=== PATIENT | female | born 1970 | race Caucasian/White ===

== ENCOUNTER 2017-01-25 16:45 | Emergency (ER) | payer SELFPAY ==
[~2017-01-25] VITALS: Ht 167.6 cm; Wt 55.8 kg
[2017-01-25 17:03] VITALS: BP 92/51
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
[2017-01-25] MEDS ORDERED: DIAZEPAM 10 MG/2 ML DISP.SYRIN. IV ONE (19:15)
== END 2017-01-25 20:23 | disposition home or self-care (01) ==
LOC: ER 16:45
DX: M54.16 Radiculopathy, lumbar region (principal); K21.9 Gastro-esophageal reflux disease without esophagitis; Z90.49 Acquired absence of other specified parts of digestive tract; Z90.710 Acquired absence of both cervix and uterus
CPT/HCPCS: 72148; 96374; 99284; J3360

== ENCOUNTER → 2017-02-20 | Outpatient (CLI) | payer OTHER ==
[2017-01-25 17:03] VITALS: BP 92/51
--- NOTE | 2017-02-21 09:43 | KCIC ---
PROCEDURE MR of the musculoskeletal pelvis HISTORY Lumbar plexopathy. TECHNIQUE Routine multiplanar sequences are obtained. COMPARISON None FINDINGS Small linear hypointense band identified at the anterosuperior subchondral left femoral head. Although subtle, this is suspicious for a small area of osteonecrosis. Small subchondral fracture such as from stress etiology could also be considered. Note, however, there is no active marrow edema here. There is a separate lesion at the anteroinferior left femoral head also subchondral measures 10 millimeters diameter. This has a less specific location and morphology and does not demonstrate any aggressive features or surrounding edema. This may just represent a benign process such as a cyst, although if there are corresponding risk factors, this could also be the result of chronic osteonecrosis. Right femoral head is intact. No acute bone marrow edema identified in the area of coverage. No significant hip joint effusion. Pubic symphysis intact. Sacroiliac joints intact. No abnormal soft tissue mass or fluid collection is identified. Muscle tissue is intact. Major tendon attachments are intact. IMPRESSION 1. Small linear band of subchondral signal at the anterosuperior left femoral head, concerning for a small focus of osteonecrosis. This could also represent a small subchondral fracture such as from repetitive stress micro trauma. No acute bone marrow edema to suggest an active process. 2. Small subchondral lesion at the anteroinferior left femoral head is less specific. This location would be less typical for osteonecrosis but that should still be considered if the patient is at clinical risk. Alternately, this may just represent a small benign lesion such as a cyst. 3. No apparent acute findings. Electronically signed by: Alfredo Pittman MD (February 21, 2017 09:36:52)
== END | disposition home or self-care (01) ==
LOC: KCIC MRI 15:56
PROVIDERS: ATTEND Neurological Surgery
DX: G54.1 Lumbosacral plexus disorders (principal)
CPT/HCPCS: 72195

== ENCOUNTER 2017-11-20 16:44 | Emergency (ER) | payer SELFPAY ==
[2017-11-20 17:37] LABS: ADD MAN DIFF? NO
[2017-11-20 17:39] LABS: BASO % 0 % (0-3); EOS # 0.1 x10^3/uL (0.0-0.7); EOS % 1 % (0-3); HEMATOCRIT 42.3 % (36.0-47.0); HEMOGLOBIN 14.4 g/dL (12.0-15.5); LYMPH # 3.2 x10^3/uL (1.0-4.8); LYMPH % 32 % (24-48); MEAN CORPUSCULAR HEMOGLOBIN 32 pg (25-35); MEAN CORPUSCULAR HGB CONC 34 g/dL (31-37); MEAN CORPUSCULAR VOLUME 95 fL (79-100); MONO # 0.5 x10^3/uL (0.0-1.1); MONO % 5 % (0-9); NEUT # 6.2 x10^3uL (1.8-7.7); NEUT % 62 % (31-73); PLATELET COUNT 329 x10^3/uL (140-400); RED BLOOD COUNT 4.45 x10^6/uL (3.50-5.40); RED CELL DISTRIBUTION WIDTH 12.5 % (11.5-14.5)
[2017-11-20] MEDS: diphenhydrAMINE 50 MG/ML VIAL IVP ×2 (17:49)
[2017-11-20] MEDS: METOCLOPRAMIDE HCL 10 MG/2 ML VIAL. IV ×2 (17:49)
[2017-11-20] MEDS: PROCHLORPERAZINE 10 MG/2 ML VIAL. IV ×2 (17:49)
[2017-11-20] MEDS: IV NORMAL SALINE 1000ML BAG 1,000 ML IV ×2 (17:50)
[2017-11-20 17:52] LABS: ANION GAP 12 (6-14); BLOOD UREA NITROGEN 7 mg/dL (7-20); BUN/CREATININE RATIO 12 (6-20); CALCIUM 9.9 mg/dL (8.5-10.1); CARBON DIOXIDE 27 mmol/L (21-32); CHLORIDE 103 mmol/L (98-107); CREATININE 0.6 mg/dL (0.6-1.0); GFR 106.7; GLUCOSE 124 mg/dL (70-99); POTASSIUM 3.7 mmol/L (3.5-5.1); SODIUM 142 mmol/L (136-145)
[2017-11-20 17:58] LABS: ALBUMIN 4.2 g/dL (3.4-5.0); ALBUMIN/GLOBULIN RATIO 1.1 (1.0-1.7); ALK PHOS 83 U/L (46-116); ALT (SGPT) 43 U/L (14-59); AST (SGOT) 25 U/L (15-37); LIPASE 138 U/L (73-393); TOTAL BILIRUBIN 0.5 mg/dL (0.2-1.0); TOTAL PROTEIN 7.9 g/dL (6.4-8.2)
== END 2017-11-20 19:36 | disposition home or self-care (01) ==
LOC: ER 16:44
DX: R11.2 Nausea with vomiting, unspecified (principal); K21.9 Gastro-esophageal reflux disease without esophagitis; F12.10 Cannabis abuse, uncomplicated; Z90.49 Acquired absence of other specified parts of digestive tract; Z90.710 Acquired absence of both cervix and uterus; Z98.51 Tubal ligation status
CPT/HCPCS: 36415; 80053; 83690; 85025; 96361; 96374; 96375; 99285-25; J0780; J1200; J2765; J7030

== ENCOUNTER → 2018-11-20 | Outpatient (CLI) | payer OTHER ==
[2017-11-20 19:30] VITALS: BP 138/68
[~2018-11-20] MED LIST: DIAZ5TAB PO; DOCU-109 PO; HYDR-2763 PO; HYDR-2769 PO; MORP15TA3 PO; NITR100C6 PO; OMEP20TA8 PO; ONDA4TAB12 PO; PANT20TA2 PO; PRED1TAB3 PO; PREG50CA PO; PROC10TA57 PO; PROC25SU21 RC; SUCR1TAB35 PO; TIZA4TAB PO
--- NOTE | 2018-11-20 11:18 | RAD ---
MRI Lumbar Spine without contrast History: L5/S1 RADICULOPATHY, left leg numbness Technique: Multiplanar, multi sequential noncontrast MR imaging was performed of the lumbar spine. Comparison: January 25, 2017 Findings: Lumbar vertebral body stature and AP alignment are maintained. There is hemangioma of S1, also small focus on the right at L4. There is again moderate to severe degenerative disc disease L5-S1, minimally at L2-3. Conus terminates at the L1-2 level. There is no significant marrow edema. L3-L4: There is mild buckling of the ligamentum flavum and facet degenerative change. Neural foramina and spinal canal are adequate. L4-L5: There is mild buckling of the ligamentum flavum and right facet hypertrophic change. Neural foramina are adequate. There is very mild narrowing of the far right lateral recess as seen previously. L5-S1: There is now protrusion/contained extrusion eccentric to the left lateral recess about 0.7 cm AP by 0.7 cm CC by about 0.7 cm transverse. There is also now a small extrusion extending below the intervertebral disc space in the left paracentral region with inferior extent to the mid aspect of S1 as seen on T1-weighted images about 0.6 cm transverse by 0.4 cm AP by probably at least 0.6 cm cc although poorly seen on the sagittal images. At the intervertebral disc space level, there is increased moderate narrowing of the far left lateral recess with contact and mild posterior displacement of the descending left S1 nerve root. There is very mild inferior neural foramina compromise bilaterally by disc osteophyte complex as seen previously. There is mild facet degenerative change IMPRESSION: 1. There is now protrusion/contained extrusion eccentric to the left lateral recess at L5-S1 with increased moderate left lateral recess stenosis and posterior displacement of the descending left S1 nerve root, also small extrusion extending below the intervertebral disc space in left paracentral region. 2. There is again moderate to severe degenerative disc disease L5-S1. 3. There is similar mild narrowing of the inferior neural foramina bilaterally at L5-S1 by disc osteophyte complex. Electronically signed by: Jassi Pinedo MD (11/20/2018 11:13 AM) [facility]
== END | disposition home or self-care (01) ==
LOC: MRI 15:22
PROVIDERS: ATTEND Physical Medicine & Rehabilitation
DX: M51.37 Other intervertebral disc degeneration, lumbosacral region (principal); M48.07 Spinal stenosis, lumbosacral region; M51.27 Other intervertebral disc displacement, lumbosacral region
CPT/HCPCS: 72148

== ENCOUNTER → 2018-11-28 | Outpatient (CLI) | payer OTHER ==
[2017-11-20 19:30] VITALS: BP 138/68
[~2018-11-28] MED LIST changes: -DOCU-109 PO; -MORP15TA3 PO; -NITR100C6 PO; -PREG50CA PO
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
== END | disposition home or self-care (01) ==
LOC: PNCL 08:10
PROVIDERS: ATTEND Anesthesiology
DX: M54.5 Low back pain (principal); M79.605 Pain in left leg; F17.210 Nicotine dependence, cigarettes, uncomplicated; M21.372 Foot drop, left foot; Z90.49 Acquired absence of other specified parts of digestive tract; Z87.440 Personal history of urinary (tract) infections; Z87.19 Personal history of other diseases of the digestive system; Z83.3 Family history of diabetes mellitus; Z82.49 Family history of ischemic heart disease and other diseases of the circulatory system
CPT/HCPCS: G0463

== ENCOUNTER → 2018-12-12 | Outpatient (CLI) | payer OTHER ==
[2017-11-20 19:30] VITALS: BP 138/68
[~2018-12-12] MED LIST changes: +DOCU-109 PO; +IOHEXOL 180 MG/ML 10 ML VIAL. ONE; +MORP15TA3 PO; +NITR100C6 PO; +PREG50CA PO; +methylPREDNISolone ACETATE 40 MG/ML VIAL. ONE; +methylPREDNISolone ACETATE 80 MG/ML VIAL. ONE
--- NOTE | 2018-12-13 00:34 | PAIN ---
DATE OF SERVICE: 12/12/2018 DIAGNOSES: Lumbar radiculopathy with lumbar degenerative disk disease, lumbar herniated disk. HISTORY OF PRESENT ILLNESS: The patient for 48-year-old female who returns for followup status post initial evaluation and preauthorization for lumbar epidural steroid injection. The patient reports still significant pain in the low back, left lower extremity, radiating to the posterior gluteus, posterior thigh, posterior calf, into the foot with numbness, tingling, burning, stabbing, described it as aching, sharp, dull, tight, also becoming constant, worse with walking, standing, using a cane in her right hand to ambulate. The patient reports pain is a 10 on a scale of 10 at its worst, 7 on average, 5 at its least and is a 7 today. The patient reports no new motor or sensory deficits. It awakens her from sleep occasionally, not every night, with still significant burning and tingling. The patient reports the Lyrica, we had given her some samples 50 mg twice a day, did decrease pain by about 20-25%. The patient reports no new motor or sensory deficits, no new bowel or bladder incontinence or other complaints. PHYSICAL EXAMINATION: VITAL SIGNS: The patient's blood pressure is 125/80, pulse 101, respirations 16, temperature 97.9 degrees Fahrenheit, weight is 128 pounds. GENERAL: The patient is awake, alert, oriented, appropriate, very pleasant demeanor. HEENT: Shows normocephalic, atraumatic. Extraocular movements are intact and symmetrical. Oral cavity: Mucous membranes are moist and pink. Dentition is intact. NECK: Shows anterior throat supple without palpable lymphadenopathy noted. Swallow reflex symmetrical. CHEST: Shows normal on inspection. Breath sounds are clear to auscultation bilaterally. HEART: Shows S1, S2 clear. No murmurs auscultated. ABDOMEN: Soft, nontender, nondistended. No palpable organomegaly is noted. No rebound or guarding demonstrated. BACK: Shows spine grossly in the midline, normal appearing thoracic kyphosis, some minor flattening of lumbar lordotic curvature. Lumbar paraspinous muscle shows symmetrical on inspection. On palpation shows some moderate tenderness diffusely in the low lumbar distribution, but only diffusely bilaterally without radiation. The patient shows good rotational motion of lumbar spine, both laterally as well as extension and flexion without difficulty. EXTREMITIES: Lower extremities show deep tendon reflexes 1+ in the patellar and tendo calcaneus tendons. Motor exam is approximately 1 on a scale of 5 left ankle with positive footdrop on the left. Right side is 5/5 with dorsiflexion, extension, quadriceps and hamstring flexion. Peripheral pulses are 1+ posterior tibia. No peripheral edema is noted bilaterally. Options were discussed with the patient. The patient's old chart was reviewed as was her current medication regimen updated. Current review of systems is updated today as well. We will proceed with lumbar epidural steroid injection today with fluoroscopic guidance. Risks were again discussed including, but not limited to bleeding, infection, possibility of epidural hematoma and subsequent neurological compromise, dural puncture, headaches, spinal cord and/or nerve damage, side effects of steroid medication and poor results regarding pain control. The patient understands and wished to proceed. The patient will return to the clinic in approximately 2 weeks for followup, was counseled on return appointment, activity level and side effects to be aware of. DIAGNOSIS: Lumbar radiculopathy with lumbar degenerative disk disease, lumbar herniated disk. PROCEDURE: Lumbar epidural steroid injection, translaminar approach at the L5-S1 level using C-arm fluoroscopic guidance under sterile prep and drape using local anesthetic. MEDICATION INJECTED: A total of 120 mg Depo-Medrol plus 10 mL of preservative-free normal saline, 2 mL of Isovue for contrast. CONDITION AT DISCHARGE: Stable. The patient tolerated the procedure well, had no complications. ORTEGA CROOKS MD DR: ARIEL/leatha JOB#: [id number] / [id number]
== END | disposition home or self-care (01) ==
LOC: PNCL 09:00
PROVIDERS: ATTEND Anesthesiology
DX: M51.16 Intervertebral disc disorders with radiculopathy, lumbar region (principal)
CPT/HCPCS: 62323; J1030; J1040; Q9965

== ENCOUNTER → 2018-12-29 | Outpatient (CLI) | payer OTHER ==
[2017-11-20 19:30] VITALS: BP 138/68
[~2018-12-29] MED LIST changes: -IOHEXOL 180 MG/ML 10 ML VIAL. ONE; -methylPREDNISolone ACETATE 40 MG/ML VIAL. ONE; -methylPREDNISolone ACETATE 80 MG/ML VIAL. ONE
--- NOTE | 2018-12-29 14:51 | PAIN ---
DATE OF SERVICE: 12/29/2018 PROGRESS NOTE FOR PAIN CLINIC DIAGNOSIS: Lumbar radiculopathy with lumbar degenerative disk disease and lumbar herniated disk. HISTORY OF PRESENT ILLNESS: The patient is a 48-year-old female who returns for followup status post lumbar epidural steroid injection x 1. The patient reports about 55% improvement overall in the low back and left lower extremity. The patient reports her foot drop has actually gotten slightly better and she is walking better. She is not using a cane today. She has decreased her medication for pain. She is increasing her activity with much greater distance walking, ability to do activity at home and household activities, walking much easier, especially sleeping better at night, does awaken her from time to time with some spasms, but not like it was. The patient reports significantly improved since her last injection and is still doing well and now it has been about 3 weeks since her last visit. The patient reports the pain is a 9 on a scale of 10 at its worst, 5 on average, 3 at its least and is a 3 today. The patient reports it is tingling, burning, aching, tight, shooting into the left lower extremity, mostly posterior gluteus, posterolateral thigh, posterior calf into the ankle and foot, still some numbness and tingling in the area of the lower leg, but the back and upper leg is doing much better, closer to 75% improvement in this region. The patient reports no new motor or sensory deficits, no new bowel or bladder incontinence or other complaints, is quite pleased with her progress thus far. PHYSICAL EXAMINATION: VITAL SIGNS: The patient's blood pressure is 119/84, pulse 84, respirations 16, temperature 98.0 degrees Fahrenheit. Weight is 130.8 pounds. GENERAL: The patient is awake, alert, oriented, appropriate, very pleasant demeanor. HEENT: Head shows normocephalic, atraumatic. Extraocular movements are intact and symmetrical. Oral cavity: Mucous membranes are moist and pink. Dentition is intact. NECK: Shows anterior throat supple without palpable lymphadenopathy noted. Swallow reflex is symmetrical. CHEST: Shows normal on inspection. Breath sounds are clear to auscultation bilaterally. HEART: Shows S1, S2 clear. No murmurs auscultated. ABDOMEN: Soft, nontender, nondistended. No palpable organomegaly is noted. No rebound or guarding demonstrated. BACK: Shows spine grossly in the midline. Normal appearing thoracic kyphosis and lumbar lordotic curvature. Lumbar paraspinous muscle shows symmetrical on inspection, on palpation shows some moderate tenderness diffusely, but only with deeper palpation in the low lumbar distribution of the paraspinous muscles. The patient has good rotational motion of lumbar spine, both laterally as well as extension and flexion without significant difficulty. The patient's back shows good rotation without significant pain reported bilaterally, right and left, as well as extension and flexion. EXTREMITIES: The patient's lower extremities show deep tendon reflexes at 1+ in the patellar and tendo-calcaneus tendons. Motor exam is approximately 1-2 on a scale with left dorsiflexion and extension and 5/5 on the right with positive foot drop on the left side, but again is improved from previous exam to a 2/5 instead of 1 overall. The patient's posterior tibial pulses are 1+ posterior tibia. No peripheral edema is noted bilaterally. The patient's straight leg raise is still mildly positive on the left side at about 40-45 degrees, decreased with knee flexion. Right side remains negative. The patient is able to stand, stand on her toes, but has difficulty putting all her weight on her left side, again walking with a slight shuffling gait, does appear to favor the left lower extremity, however, not using her assistive cane to ambulate with her today as she reports she is feeling much better, does not need it all the time. Options were discussed with the patient. The patient's old chart was reviewed as her current medication regimen updated. Current review of systems updated today as well. We will preauthorize the patient for a second lumbar epidural steroid injection. She did very well after the first injection with about 55% overall, 75% in the back and 55% in the left lower extremity, again with improving foot drop as well as decrease need for pain medications and not using her cane any longer to ambulate. We will preauthorize her to L5-S1 translaminar injection for L5-S1 dermatomal distribution of radiculopathy on the left side. The patient in the meantime will continue with stretching and strengthening exercises as tolerated and return in approximately 1 week. We will plan on second lumbar epidural steroid injection at that time. ORTEGA CROOKS MD DR: ARIEL/leatha JOB#: [id number] / [id number]
== END | disposition home or self-care (01) ==
LOC: PNCL 08:12
PROVIDERS: ATTEND Anesthesiology
DX: M51.16 Intervertebral disc disorders with radiculopathy, lumbar region (principal); M51.26 Other intervertebral disc displacement, lumbar region
CPT/HCPCS: G0463

== ENCOUNTER → 2019-01-09 | Outpatient (CLI) | payer OTHER ==
[2017-11-20 19:30] VITALS: BP 138/68
[~2019-01-09] MED LIST changes: +IOHEXOL 180 MG/ML 10 ML VIAL. ONE; +methylPREDNISolone ACETATE 40 MG/ML VIAL. ONE; +methylPREDNISolone ACETATE 80 MG/ML VIAL. ONE
--- NOTE | 2019-01-10 04:59 | PAIN ---
DATE OF SERVICE: 01/09/2019 PROGRESS NOTE FOR PAIN CLINIC DIAGNOSES: Lumbar radiculopathy with lumbar degenerative disk disease, lumbar herniated disk. HISTORY OF PRESENT ILLNESS: The patient is a 48-year-old female who returns for followup status post lumbar epidural steroid injection x 1 and was waiting preauthorization for second injection. She has obtained that now and would like to proceed. The patient reports still significant pain in the low back and left lower extremity as it was previously. The patient is not using her cane any longer and reports her pain level is much reduced, but the patient reports about 8 on a scale of 10 at its worst, a 6 on a scale of 10 at its average, and 3 at least and is 3 today. The patient reports it is aching, sharp, dull, stabbing, tingling in the low back and the left lower extremity, again worse with walking, standing for greater periods of time, continuing to awaken her from sleep again over the past several days, but prior to that it was not. The patient reports no new motor or sensory deficits, no new bowel or bladder incontinence. She has been increasing distance walking, doing work activities, household activities with much greater ease and comfort. PHYSICAL EXAMINATION: VITAL SIGNS: Blood pressure 98/49, pulse 109, respirations 18, temperature 98.6 degrees Fahrenheit, height is 5 feet 6 inches, weight is 128 pounds. GENERAL: The patient is awake, alert, oriented, appropriate, very pleasant demeanor. HEENT: Head is normocephalic, atraumatic. Extraocular movements are intact and symmetrical. Oral cavity: Mucous membranes moist and pink. Dentition is intact. NECK: Shows anterior throat supple without palpable lymphadenopathy noted. Swallow reflex is symmetrical. CHEST: Shows normal on inspection. Breath sounds clear to auscultation bilaterally. HEART: Shows S1, S2 clear. No murmurs auscultated. ABDOMEN: Soft, nontender, nondistended. No palpable organomegaly is noted. No rebound or guarding demonstrated. BACK: Shows spine grossly in the midline. Normal appearing thoracic kyphosis, some minor flattening of lumbar lordotic curvature. Lumbar paraspinous muscle shows symmetrical on inspection. Palpation shows some moderate tenderness diffusely in the low lumbar distribution bilaterally minimally diffusely without radiation, but the patient has good rotational motion of lumbar spine both laterally as well as extension and flexion without significant difficulty or pain reported. EXTREMITIES: The patient's lower extremities show deep tendon reflexes 1+ in the patellar and tendo-calcaneus tendons. Motor is approximately 3 on a scale of 5 on left ankle and 5/5 on the right. Peripheral pulses are 1+ posterior tibia. No peripheral edema is noted bilaterally. Options were discussed with the patient. The patient's old chart was reviewed as well as current medication regimen updated. Current review of systems updated today as well. We will proceed with a second in the series of lumbar epidural steroid injection today with fluoroscopic guidance. Risks were again discussed including, but not limited to bleeding, infection, possibility of epidural hematoma, subsequent neurological compromise, dural puncture, headaches, spinal cord and/or nerve damage, side effects of steroid medication and poor results regarding pain control. The patient understands and wished to proceed. The patient to return to clinic in approximately 2 weeks for followup. She was counseled on return appointment, activity level and side effects to be aware of. DIAGNOSES: Lumbar radiculopathy with lumbar degenerative disk disease, lumbar herniated disk. PROCEDURE: Lumbar epidural steroid injection, translaminar approach, L5-S1 level using C-arm fluoroscopic guidance under sterile prep and drape using local anesthetic. MEDICATION INJECTED: A total of 120 mg Depo-Medrol plus 10 mL of preservative free normal saline, 2 mL of Isovue for contrast. CONDITION AT DISCHARGE: Stable. The patient tolerated procedure well, had no complications. ORTEGA CROOKS MD DR: ARIEL/leatha JOB#: [id number] / [id number]
== END | disposition home or self-care (01) ==
LOC: PNCL 11:24
PROVIDERS: ATTEND Anesthesiology
DX: M51.16 Intervertebral disc disorders with radiculopathy, lumbar region (principal)
CPT/HCPCS: 62323; J1030; J1040; Q9965

== ENCOUNTER → 2019-02-02 | Outpatient (CLI) | payer OTHER ==
[2017-11-20 19:30] VITALS: BP 138/68
[~2019-02-02] MED LIST changes: -IOHEXOL 180 MG/ML 10 ML VIAL. ONE; -methylPREDNISolone ACETATE 40 MG/ML VIAL. ONE; -methylPREDNISolone ACETATE 80 MG/ML VIAL. ONE
--- NOTE | 2019-02-02 22:34 | PAIN ---
DATE OF SERVICE: 02/02/2019 PROGRESS NOTE FOR PAIN CLINIC DIAGNOSES: 1. Lumbar radiculopathy with lumbar degenerative disk disease, lumbar herniated disk. 2. Left hip joint pain with osteoarthritis. The patient is a 48-year-old female who returns for followup status post lumbar epidural steroid injections x 2. The patient reports she did very well after the last injection. The pain was not as significantly reduced as the first one, but still about 75% improved in the low back and left leg pain. The patient reports still some persistent foot drop on the left side with ambulation. She is wearing a brace on her foot and ankle on the left side as well. The patient had recently an appointment with her orthopedist who contacted me earlier regarding her left hip joint. She does have some significant pain in the left hip itself with some radiating pain into the groin on the left side with walking and weightbearing, better with sitting or lying down. The patient reports hip joint pain is worse with standing, especially putting all of her weight on her left leg when she is raising her leg or stepping on a step or stair, it becomes more excruciating and piercing through the left groin, as well as into the posterior hip. The patient reports it is aching, sharp, shooting, stabbing, burning, tingling, radiating, becoming more severe, more unbearable with time. The patient reports her pain is a 10 on a scale of 10 at its worst in the last week 10 on average and a 7 at its least and is a 10 today. The patient reports no loss of motor function, but significant foot drop persistent on the left side. PHYSICAL EXAMINATION: VITAL SIGNS: The patient's blood pressure is 115/78, pulse 80, respirations 18, temperature 98.2 degrees Fahrenheit, height is 5 feet 6 inches, weight is 141 pounds. GENERAL: The patient is awake, alert, oriented, appropriate, very pleasant demeanor. HEENT: Head shows normocephalic, atraumatic. Extraocular movements are intact and symmetrical. The patient is wearing eyeglasses. Oral cavity: Mucous membranes moist and pink. Dentition is intact. NECK: Shows anterior throat supple without palpable lymphadenopathy noted. Swallow reflex symmetrical. CHEST: Shows normal on inspection. Breath sounds clear to auscultation bilaterally. HEART: Shows S1, S2 clear. No murmurs auscultated. ABDOMEN: Soft, nontender, nondistended. No palpable organomegaly is noted. No rebound or guarding demonstrated. BACK: Shows spine grossly in the midline. Normal appearing thoracic kyphosis, lumbar lordotic curvature. Lumbar paraspinous muscle shows symmetrical on inspection. On palpation shows some moderate tenderness diffusely bilaterally, but only diffusely without radiation. EXTREMITIES: The patient's lower extremities show deep tendon reflexes 1+/4 in the patellar and tendo calcaneus tendons on the right and tendo calcaneus and on the left shows 0/4. Motor exam is approximately 3 on a scale of 5 with left ankle and 5/5 on the right. Ko's maneuvers shows positive on the left side with external rotation of the left hip and displacement. Right side is negative. Peripheral pulses are 1+ posterior tibia. No peripheral edema is noted bilaterally. Options were discussed with the patient. The patient's old chart was reviewed as his current medication regimen updated. Current review of systems updated today as well and we will preauthorize the patient for a left intraarticular hip joint injection with fluoroscopic guidance as the patient has a positive Ko's maneuver on the left with significant pain increase in the groin with standing, weightbearing on the left side only. The patient in the meantime, we will follow up with Dr. Albert Navarro regarding left persistent foot drop and radicular pain in the left leg, status post lumbar epidural steroid injections x 2. With significant radiculopathy, L5-S1 dermatomal distribution on the left, we will preauthorize the patient for a left L5-S1 epidural as well, but again the patient will see Dr. Navarro for neurosurgical opinion in the meantime. ORTEGA CROOKS MD DR: ARIEL/leatha JOB#: [id number] / [id number]
== END | disposition home or self-care (01) ==
LOC: PNCL 10:58
PROVIDERS: ATTEND Anesthesiology
DX: M51.16 Intervertebral disc disorders with radiculopathy, lumbar region (principal); M16.12 Unilateral primary osteoarthritis, left hip
CPT/HCPCS: G0463

== ENCOUNTER → 2019-02-16 | Outpatient (CLI) | payer OTHER ==
[2017-11-20 19:30] VITALS: BP 138/68
[~2019-02-16] MED LIST changes: +BUPIVACAINE MPF 0.25% 10 ML VIAL. ONE; +IOHEXOL 180 MG/ML 10 ML VIAL. ONE; +methylPREDNISolone ACETATE 80 MG/ML VIAL. ONE
--- NOTE | 2019-02-17 04:24 | PAIN ---
DATE OF SERVICE: 02/16/2019 PROGRESS NOTE FOR PAIN CLINIC DIAGNOSES: 1. Lumbar radiculopathy with lumbar degenerative disk disease with lumbar herniated disk. 2. Left hip joint pain with primary osteoarthritis, left hip joint. HISTORY OF PRESENT ILLNESS: The patient is a 48-year-old female who returns for followup status post lumbar epidural steroid injections x 2, most recent on 01/09/2019. The patient did well with about 75% improvement overall but is planning on lumbar surgery with her neurosurgeon within the next few weeks. The patient reports pain in the low back and left leg as it was previously, but her main complaint is hip pain on the left and groin pain with walking and standing, especially with putting all of her weight on her left side or stepping up on a curb or a stair, which become much more noticeable. The patient did see her orthopedic surgeon, Dr. Good had some x-rays done showing some significant osteonecrosis on MRI of the left hip and is recommending treatment of the hip itself first. The patient reports no loss of motor function, but significant balance loss. She still has a drop foot on the left side as well and is wearing a brace for this and using a cane in her right hand. The patient reports after her last injection, she was increasing her distance walking, work activities, home activities with much greater ease and comfort, traveling better. The patient reports it is beginning to wake her from sleep on the left side in the hip and the groin now about every 2-3 hours over the past 2 weeks. The patient reports the pain an 8 on a scale of 10 at its worst, 7 on average, 6 at its least over the past week and is a 6 today. The patient reports tingling, stabbing, sharp and tight, aching and sharp in the left groin as well. PHYSICAL EXAMINATION: VITAL SIGNS: The patient's blood pressure 105/63, pulse 88, respirations are 16 and temperature 98.3 degrees Fahrenheit. Height is 5 feet 6 inches and weight is 136 pounds. GENERAL: The patient is awake, alert, oriented, appropriate and very pleasant demeanor. HEENT: Shows normocephalic and atraumatic. Extraocular movements intact and symmetrical. Oral cavity: Mucous membranes moist and pink. Dentition is intact. NECK: Shows anterior throat supple without palpable lymphadenopathy noted. Swallow reflex is symmetrical. CHEST: Shows normal with inspection. Breath sounds clear to auscultation bilaterally. HEART: Shows S1 and S2 clear. No murmurs auscultated. ABDOMEN: Soft, nontender and nondistended. No palpable organomegaly is noted. No rebound or guarding demonstrated. BACK: Shows spine grossly in the midline. Normal appearing cervical lordotic curvature, thoracic kyphotic curvature and lumbar lordotic curvature. Lumbar paraspinous muscle shows symmetrical on inspection. On palpation shows some moderate tenderness diffusely bilaterally but only diffusely without significant radiation. EXTREMITIES: The patient's lower extremities showed deep tendon reflexes at 1+ in the patellar and tendo-calcaneus tendons are equal. Motor exam is approximately 3 on a scale of 5 with left ankle with footdrop present and 5/5 on the right. The patient's left hip shows significant tenderness with external rotation with knee flexion in the groin itself with positive Ko's maneuver, right side is negative. Options were discussed with the patient. The patient's old chart was reviewed as well as current medication regimen updated. Current review of systems updated today as well. We will proceed with a left intraarticular hip joint injection today with fluoroscopic guidance. Risks were again discussed including, but not limited to bleeding, infection, possibility of intravascular injection sequelae, spread of local anesthetic and numbness, side effects of steroid medication, exposure to fluoroscopy and poor results regarding pain control. The patient understands and wished to proceed. The patient will return to the clinic in approximately 2 weeks for followup, was counseled as to return appointment, activity level and side effects to be aware of. DIAGNOSIS: Primary osteoarthritis, left hip joint with left hip joint pain. PROCEDURE: Left intraarticular hip joint injection using C-arm fluoroscopic guidance under sterile prep and drape using local anesthetic. MEDICATION INJECTED: A total of 80 mg Depo-Medrol plus 3 mL of 0.25% bupivacaine and 3 mL of contrast. CONDITION AT DISCHARGE: Stable. The patient tolerated the procedure well, had no complications. ORTEGA CROOKS MD DR: ARIEL/leatha JOB#: [id number] / [id number]
== END | disposition home or self-care (01) ==
LOC: PNCL 08:43
PROVIDERS: ATTEND Anesthesiology
DX: M16.12 Unilateral primary osteoarthritis, left hip (principal); M51.16 Intervertebral disc disorders with radiculopathy, lumbar region
CPT/HCPCS: 20610; 77002; J1040; J3490; Q9965

== ENCOUNTER → 2019-03-02 | Outpatient (CLI) | payer OTHER ==
[2017-11-20 19:30] VITALS: BP 138/68
[~2019-03-02] MED LIST changes: -BUPIVACAINE MPF 0.25% 10 ML VIAL. ONE; -IOHEXOL 180 MG/ML 10 ML VIAL. ONE; -methylPREDNISolone ACETATE 80 MG/ML VIAL. ONE
== END | disposition home or self-care (01) ==
LOC: SURGPAT 13:42
PROVIDERS: ATTEND Neurological Surgery
DX: Z01.818 Encounter for other preprocedural examination (principal); M51.16 Intervertebral disc disorders with radiculopathy, lumbar region; Z88.8 Allergy status to other drugs, medicaments and biological substances
CPT/HCPCS: 36415; 87641

== ENCOUNTER 2019-03-12 07:17 | Day surgery (SDC) | payer OTHER ==
--- NOTE | 2019-03-11 16:08 | PREOP HP ---
DATE OF SERVICE: 03/12/2019 HISTORY OF PRESENT ILLNESS: The patient is 48 years of age. She is having difficulty with low back pain and pain which radiates to her left buttock, anterior lateral thigh and leg, as well as left foot. The problem started in 09/2015. She said the pain has become much more severe recently. She rates her pain currently as a 9/10. She relates that recently she had epidural steroid injections, which helped her significantly. There is no problem on the right side. She feels as though there is weakness of dorsiflexion on the left. She is taking morphine and Cambridge. PAST MEDICAL HISTORY: Arthritis, head and neck injury. PAST SURGICAL HISTORY: in 1986, right knee surgery in 1983, hysterectomy in 2001, cholecystectomy in 2003 and appendectomy in 2003. FAMILY HISTORY: Alzheimer disease, diabetes, heart problems and disease. SOCIAL HISTORY: Employed by [employer]. . Exercises weekly. Denies substance abuse. Smokes three-quarters of a pack of cigarettes per day and has for 20 years. Drinks alcohol 1-2 times per year. Drinks coffee, tea and soda daily. ALLERGIES: ASPIRIN. CURRENT MEDICATIONS: Prednisone, Cambridge, Valium, Lyrica, pantoprazole, morphine Macrodantin. REVIEW OF SYSTEMS: A 12-point review of systems was obtained and is noncontributory except for that mentioned above. PHYSICAL EXAMINATION: NEUROSURGERY EXAMINATION: GENERAL APPEARANCE: Alert, pleasant, no acute distress. HEAD: Normocephalic and atraumatic. SKIN: Warm and dry. MUSCULOSKELETAL: Lumbar paraspinal muscle bulk is normal, restricted range of motion of the lower lumbar spine, [id number] tenderness of lower lumbar spine to palpation, normal range of motion of the lower extremities bilaterally. EXTREMITIES: No clubbing, cyanosis or edema. NEUROLOGIC: Alert and oriented x3, normal recent and remote memory. Strength 5/5 in bilateral lower extremities except for 4+/5 left EHL. Sensory was intact to light touch in bilateral lower extremities except for diffuse decrease involving her left foot. Reflexes are present and symmetric in the lower extremities bilaterally, positive straight leg raising on the left with back, left hip and posterior lateral thigh pain relieved by Lasegue maneuver, negative straight leg raising on the right, antalgic gait. IMAGING: Reviewed. I reviewed a lumbar MRI scan. It says there is a disk extrusion at L5-S1, which is at left lateral recess and is compressing the left S1 nerve root. There is also foraminal narrowing bilaterally at this level. ASSESSMENT: Intervertebral disk disorders with radiculopathy, lumbosacral region. PLAN: The problems at L5-S1 on the left as well as the neural foramen on the left are responsible for at least a portion of her symptoms. At this point, my recommendation is that she consider lumbar microsurgery to decompress the nerve root at L5-S1. I discussed the surgery with her in detail including the technique, risks, and expected postoperative course. She understands. She would like to go ahead. We will make the arrangements. DENNY ALARCON MD DR: ROLANDA/leatha JOB#: [id number] / [id number]
[~2019-03-12] VITALS: Ht 165.1 cm; Wt 60.3 kg
[2019-03-12] MEDS: IV RINGERS,LACTATED 1000ML 1,000 ML IV SCH ×2 (07:00→11:40)
[~2019-03-12 07:17] MED LIST changes: +BACITRACIN 50,000 UNIT in IV NORMAL SALINE 1000ML BAG 1,000 ML IRR ONE; +BUPIVAC MPF-EPI 0.5%-1:200000 30 ML VIAL. ONE; -DOCU-109 PO; +GELATIN SPONGE SIZE 12-7MM SPONGE. ONE; +HYDROmorphone 2 MG/ML VIAL IV PRN; +KETOROLAC 60 MG/2 ML INJ FOR OR. ONE; +MORPHINE SULFATE 2 MG/ML VIAL. IV PRN; -NITR100C6 PO; +ONDANSETRON PF 4 MG/2 ML VIAL. IV PRN; +PROCHLORPERAZINE 10 MG/2 ML VIAL. IV PRN; +THROMBIN TOPICAL 20,000 UNIT SPRAY.SYRN KIT TP ONE; +fentaNYL PF VIAL 100 MCG/2 ML VIAL IV PRN
[2019-03-12] MEDS ORDERED: SCOPOLAMINE 1.5MG PATCH. TD ONE (08:00)
[2019-03-12] MEDS ORDERED: PROPOFOL 50 ML IV ONE (08:06)
[2019-03-12] MEDS ORDERED: PHENYLEPHRINE 10 MG/ML VIAL. ONE (08:06)
[2019-03-12] MEDS ORDERED: PROPOFOL 20 ML IV ONE (08:06)
[2019-03-12] MEDS ORDERED: LIDOCAINE 2% PF 5 ML VIAL. ONE (08:06)
[2019-03-12] MEDS ORDERED: ONDANSETRON PF 4 MG/2 ML VIAL. ONE (08:06)
[2019-03-12] MEDS ORDERED: DEXAMETHASONE SOD PHOS 20 MG/5 ML VIAL. ONE (08:06)
[2019-03-12] MEDS ORDERED: ROCURONIUM 50 MG/5 ML VIAL. ONE (08:06)
[2019-03-12] MEDS ORDERED: REMIFENTANIL 1 MG VIAL. IV ONE (08:07)
[2019-03-12] MEDS ORDERED: MIDAZOLAM HCL/PF 2 MG/2 ML VIAL. ONE (08:07)
[2019-03-12] MEDS ORDERED: GLYCOPYRROLATE 1 MG/5 ML VIAL. ONE (08:16)
[2019-03-12] MEDS ORDERED: NEOSTIGMINE METHYLSULFATE 5 MG/5 ML SYRINGE. ONE (08:16)
[2019-03-12] MEDS ORDERED: KETAMINE HCL IN NACL, ISO-OSM 50 MG/5 ML SYRINGE ONE (09:42)
[2019-03-12] MEDS ORDERED: DESFLURANE > 120 MINUTES IH ONE (09:50)
[2019-03-12] MEDS ORDERED: MINERAL OIL/PETROLATUM,WHITE OPHTH OINT 3.5GM TUBE. ONE (09:53)
[2019-03-12] MEDS ORDERED: diphenhydrAMINE 50 MG/ML VIAL ONE (10:23)
[2019-03-12] MEDS ORDERED: DOCU-109 PO (10:29)
--- NOTE | 2019-03-12 10:32 | DISCH ---
DISCHARGE INSTRUCTIONS Condition on Discharge Condition on Discharge: Stable Activity After Discharge Activity Instructions for Disc: Activity as tolerated, Avoid exertion Other activity instructions: no driving for a week Bathing Instructions: Shower-keep dressing dry Lifting Instructions after Dis: No heavy lifting, No pulling or pushing, Do not lift >10 pounds Diet after Discharge Additional Diet Restrictions: resume home diet Wound Incision Care Wound/Incision Care: Ice to area for comfort Other wound/incision instructi: may remove dressing in 48 hours if dry then may shower, no soaking Contacting the after DC Call your doctor for: Concerns you may have Follow-Up Follow up with: Dr. Alarcon's nurse in 2 weeks [phone] DENNY ALARCON MD March 12, 2019 10:32
--- NOTE | 2019-03-12 11:08 | OP ---
DATE OF SURGERY: 03/12/2019 PREOPERATIVE DIAGNOSIS: Herniated lumbar disc, L5-S1 left with left lumbar radiculopathy. POSTOPERATIVE DIAGNOSIS: Herniated lumbar disc, L5-S1 left with left lumbar radiculopathy. OPERATION PERFORMED: Hemilaminotomy and microdiscectomy L5-S1 on the left. The operation was done with EMG monitoring, fluoroscopy, microscopic dissection. SURGEON: Albert Alarcon M.D. FRUIT DUMPER: FLORENTIN Yarbrough, assisted with the surgery. She assisted with the exposure, the microdiscectomy as well as the closure. OPERATIVE INDICATIONS: The patient is a very pleasant 48-year-old who has a long history of back and left leg pain. She failed to improve with conservative measures. On imaging studies, there was focal disc herniation L5-S1 on the left and I recommended lumbar microsurgery. I spoke with her about the surgery, the risks, the technique and expected postoperative course and she wished to go ahead. DESCRIPTION OF PROCEDURE: Following general endotracheal anesthesia, the patient was positioned prone on the Danny table and lumbar regions prepped and draped in standard fashion. WILMA hose and AV impulse boots were applied for DVT prophylaxis. The microscope was draped. Fluoroscopy was draped and brought into the field. Monitoring was established. Ancef 2 gram was given less than 1 hour prior to initiation of the surgery. Using fluoroscopic guidance, a small midline posterior incision was made. I dissected down through skin and subcutaneous tissue, placed a micro disc retractor. I brought in the microscope and the remainder of surgery was done with the microscope using microscopic technique. I burred down a hemilaminotomy and trimmed away ligamentum flavum and exposed the S1 root. Beneath the root at the level of the disc, there was a focal disc herniation, which was lifting the root and compressing it. I gently retracted the root medially with a micro nerve root retractor. There was a large epidural vein, which I coagulated and was able to move laterally and I then began to tease back and remove disc material. I did use an arachnoid knife to open portions of the posterior ligament and then a micropituitary and I began to remove further disc material. I did enter the disc space, which was largely collapsed. I did work until the entire region and became well decompressed. The disc was quite scarred and I gently teased back and removed it in multiple small fragments. The nerve then became very, very free and was no longer compressed. I explored carefully. There were no retained fragments. I felt that the decompression had gone very well. I did perform a small partial foraminotomy as well. I then irrigated copiously with antibiotic solution. I removed the retractor and I assured myself of perfect hemostasis, irrigated multiple times and then I closed the wound in layers with absorbable suture. The skin was closed with 4-0 subcuticular stitch. The operation went very well. The patient awakened uneventfully. There were no problems with the monitoring throughout the operation. I was quite pleased with the surgery. ALBERT ALARCON MD DR: ROLANDA/leatha JOB#: [id number] / [id number] MITZY
[2019-03-12] MEDS ORDERED: HYDROcodone/APAP 7.5/325MG 1 TAB TABLET PO PRN ×2 (11:15)
[2019-03-12] MEDS ORDERED: NEOMY/BACITR/POLYMYXIN OINT PACKET. TP ONE (11:34)
[2019-03-12 12:21] VITALS: BP 95/64
[2019-03-13] MEDS ORDERED: NITR100C6 PO (14:16)
--- NOTE | 2019-03-16 14:06 | PATHOLOGY ---
[facility] Accession Number: [id number] . 01 Material submitted: . vertebral column - LUMBAR DECOMPRESSION AND DISC . 01 Clinical history: . Lumbar herniated disc with radiculopathy . 02 Diagnosis: Segments of fibrocartilaginous and adipose tissue and bone, lumbar decompression and disc: - Degenerative changes of fibrocartilaginous tissue. (M:[facility] 03/16/2019) [facility]/03/16/2019 . 02 Comment: There is no evidence of an acute inflammatory process or malignancy. ([facility] 03/16/2019) . 02 Electronically signed: . Avelino Sol MD, Pathologist NPI- [id number] . 01 Gross description: . The specimen is received in formalin, labeled "Edwards, Jennifer, lumbar decompression and disc", are multiple irregular fragments of powell and yellow rubbery and gritty tissue possibly admixed with bone fragments measuring 2.0 x 2.0 x 0.4 cm in aggregate. The specimen is entirely submitted in A1 after decalcification. ([facility] [place]; 03/11/2019) [facility] . 02 Pathologist provided ICD-10: M51.36 . 02 CPT . 842660, 542350 Specimen Comment: A courtesy copy of this report has been sent to Specimen Comment: [phone], . Specimen Comment: Report sent to / DR ARREGUIN Performed at: 01 [facility] [address] [facility] [place] [address], [place] [id number] MD Izaiah Montemayor MD Phone: [phone] Performed at: 02 [facility] [address] [place], [place] [id number] MD Avelino Sol MD Phone: [phone]
== END 2019-03-12 14:00 | disposition home or self-care (01) ==
LOC: SURG 07:17
PROVIDERS: ATTEND Neurological Surgery
DX: M51.16 Intervertebral disc disorders with radiculopathy, lumbar region (principal); F17.210 Nicotine dependence, cigarettes, uncomplicated; Z87.39 Personal history of other diseases of the musculoskeletal system and connective tissue; Z90.710 Acquired absence of both cervix and uterus; Z90.49 Acquired absence of other specified parts of digestive tract; Z98.890 Other specified postprocedural states; Z79.82 Long term (current) use of aspirin
CPT/HCPCS: 63030; 76000; 97116; 97162; 97530; A7015; G8978; G8979; G8980; J0696; J0780; J1100; J1200; J1885; J2001; J2250; J2405; J2704; J2710; J3010; J3490; J7030; 88304; 88311; J2270

== ENCOUNTER 2019-03-13 07:37 | Inpatient (IN) | payer OTHER ==
[~2019-03-13] VITALS: Ht 165.1 cm; Wt 61.4 kg
[~2019-03-13 07:37] MED LIST changes: -BACITRACIN 50,000 UNIT in IV NORMAL SALINE 1000ML BAG 1,000 ML IRR ONE; -BUPIVAC MPF-EPI 0.5%-1:200000 30 ML VIAL. ONE; +DOCU-109 PO; -GELATIN SPONGE SIZE 12-7MM SPONGE. ONE; -HYDROmorphone 2 MG/ML VIAL IV PRN; -KETOROLAC 60 MG/2 ML INJ FOR OR. ONE; -MORPHINE SULFATE 2 MG/ML VIAL. IV PRN; -ONDANSETRON PF 4 MG/2 ML VIAL. IV PRN; -PROCHLORPERAZINE 10 MG/2 ML VIAL. IV PRN; -THROMBIN TOPICAL 20,000 UNIT SPRAY.SYRN KIT TP ONE; -fentaNYL PF VIAL 100 MCG/2 ML VIAL IV PRN
[2019-03-13] MEDS ORDERED: IV NORMAL SALINE 1000ML BAG 1,000 ML IV SCH (07:54)
[2019-03-13] MEDS ORDERED: fentaNYL PF VIAL 100 MCG/2 ML VIAL IV ONE (08:00)
[2019-03-13] MEDS ORDERED: ONDANSETRON PF 4 MG/2 ML VIAL. IV ONE ×2 (08:00→12:15)
[2019-03-13 08:33] LABS: BASO % 0 % (0-3); EOS % 0 % (0-3); HEMATOCRIT 42.7 % (36.0-47.0); HEMOGLOBIN 14.3 g/dL (12.0-15.5); LYMPH # 3.4 x10^3/uL (1.0-4.8); LYMPH % 25 % (24-48); MEAN CORPUSCULAR HEMOGLOBIN 32 pg (25-35); MEAN CORPUSCULAR HGB CONC 33 g/dL (31-37); MEAN CORPUSCULAR VOLUME 96 fL (79-100); MONO # 1.1 x10^3/uL (0.0-1.1); MONO % 8 % (0-9); NEUT # 9.4 x10^3uL (1.8-7.7); NEUT % 67 % (31-73); PLATELET COUNT 327 x10^3/uL (140-400); RED BLOOD COUNT 4.43 x10^6/uL (3.50-5.40); RED CELL DISTRIBUTION WIDTH 12.9 % (11.5-14.5)
[2019-03-13 08:43] LABS: CALCIUM 9.7 mg/dL (8.5-10.1); CREATININE 0.7 mg/dL (0.6-1.0); GFR 88.9; POTASSIUM 3.4 mmol/L (3.5-5.1)
[2019-03-13] MEDS ORDERED: PROCHLORPERAZINE 10 MG/2 ML VIAL. IV ONE (08:45)
[2019-03-13 08:48] LABS: ALBUMIN 3.8 g/dL (3.4-5.0); TOTAL BILIRUBIN 0.4 mg/dL (0.2-1.0); TOTAL PROTEIN 7.5 g/dL (6.4-8.2)
[2019-03-13] MEDS ORDERED: MORPHINE SULFATE 4 MG/ML VIAL. IV ONE (09:00)
[2019-03-13] MEDS ORDERED: METOCLOPRAMIDE HCL 10 MG/2 ML VIAL. IV ONE (09:00)
[2019-03-13 09:13] LABS: BILIRUBIN,URINE NEGATIVE (NEG); CLARITY,URINE CLEAR; COLOR,URINE YELLOW; NITRITE,URINE NEGATIVE (NEG); PROTEIN,URINE NEGATIVE (NEG-TRACE); UROBILINOGEN,URINE 0.2 mg/dL (0.2 mg/dL)
--- NOTE | 2019-03-13 09:13 | PHYS DOC ---
Past Medical History Past Medical History: GERD, Other Additional Past Medical Histor: drop foot- L, L5-S1 injury, stretched perineal nerve, CYCLIC VOMITTING SYND Past Surgical History: Appendectomy, Cholecystectomy, , Hysterectomy, Tubal ligation Additional Past Surgical Histo: R knee, Alcohol Use: None Drug Use: Marijuana Adult General Chief Complaint Chief Complaint: NAUSEA/VOMITING/DIARRHA HPI HPI Patient is a 48 year old female who presents with complaining of nausea and vomiting. Patient states she had L4-L5 disc surgery yesterday and since midnight had more than 20 episodes of nonbloody vomiting with epigastric burning pain during episodes of vomiting. Patient states she was not able to take her pain medication and rated her back pain 10 over 10. Patient denies chest pain, fever and chills, urinary symptom. Review of Systems Review of Systems Constitutional: Denies fever or chills [] Eyes: Denies change in visual acuity, redness, or eye pain [] HENT: Denies nasal congestion or sore throat [] Respiratory: Denies cough or shortness of breath [] Cardiovascular: No additional information not addressed in HPI [] GI: Reports abdominal pain, nausea, vomiting, denies bloody stools or diarrhea [] : Denies dysuria or hematuria [] Musculoskeletal: Reports back pain, denies joint pain [] Integument: Denies rash or skin lesions [] Neurologic: Denies headache, focal weakness or sensory changes [] Endocrine: Denies polyuria or polydipsia [] All other systems were reviewed and found to be within normal limits, except as documented in this note. Current Medications Current Medications Current Medications Medications (Trade) Dose Ordered Sig/[facility] Start Time Stop Time Status Last Admin Dose Admin Fentanyl Citrate (Fentanyl 2ml Vial) 50 mcg 1X ONCE 03/13/19 08:00 03/13/19 08:01 DC 03/13/19 08:05 50 MCG Metoclopramide HCl (Reglan Vial) 10 mg 1X ONCE 03/13/19 09:00 03/13/19 09:04 DC 03/13/19 09:28 10 MG Morphine Sulfate (Morphine Sulfate) 4 mg 1X ONCE 03/13/19 09:00 03/13/19 09:04 DC 03/13/19 09:35 4 MG Ondansetron HCl (Zofran) 4 mg 1X ONCE 03/13/19 08:00 03/13/19 08:03 DC 03/13/19 08:04 4 MG Prochlorperazine Edisylate (Compazine) 10 mg 1X ONCE 03/13/19 08:45 03/13/19 08:46 DC 03/13/19 08:42 10 MG Sodium Chloride 1,000 ml @ 1,000 mls/hr Q1H 03/13/19 07:54 03/13/19 08:53 DC 03/13/19 07:54 1,000 MLS/HR Allergies Allergies Allergies Coded Allergies Type Severity Reaction Last Updated Verified bupropion Allergy Intermediate 03/13/19 No NSAIDS (Non-Steroidal Anti-Inflamma Adverse Reaction Intermediate Nausea and Vomiting 03/12/19 Yes aspirin Adverse Reaction Intermediate Nausea 03/12/19 Yes Physical Exam Physical Exam Constitutional: Well developed, well nourished, moderate distress, non-toxic appearance. [] HENT: Normocephalic, atraumatic, oropharynx dry, no oral exudates, nose normal. [] Eyes: PERRLA, EOMI, conjunctiva normal, no discharge. [] Neck: Normal range of motion, no tenderness, supple, no stridor. [] Cardiovascular:Heart rate regular rhythm, no murmur [] Lungs & Thorax: Bilateral breath sounds clear to auscultation [] Abdomen: Bowel sounds normal, soft, no tenderness, no masses, no pulsatile masses. [] Skin: Warm, dry, no erythema, no rash. [] Back: Lower midline dressing in place without erythema, no CVA tenderness. [] Extremities: No tenderness, no cyanosis, no clubbing, ROM intact, no edema. [] Neurologic: Alert and oriented X 3, normal motor function, normal sensory function, no focal deficits noted. [] Psychologic: Affect normal, judgement normal, mood normal. [] Current Patient Data Vital Signs Vital Signs Date Time Temp Pulse Resp B/P (MAP) Pulse Ox O2 Delivery O2 Flow Rate FiO2 03/13/19 08:05 14 100 Room Air 03/13/19 07:38 98.5 72 164/105 (124) 98.5 Lab Values Laboratory Tests Test 03/13/19 07:56 03/13/19 08:55 White Blood Count 14.0 x10^3/uL (4.0-11.0) H Red Blood Count 4.43 x10^6/uL (3.50-5.40) Hemoglobin 14.3 g/dL (12.0-15.5) Hematocrit 42.7 % (36.0-47.0) Mean Corpuscular Volume 96 fL (79-100) Mean Corpuscular Hemoglobin 32 pg (25-35) Mean Corpuscular Hemoglobin Concent 33 g/dL (31-37) Red Cell Distribution Width 12.9 % (11.5-14.5) Platelet Count 327 x10^3/uL (140-400) Neutrophils (%) (Auto) 67 % (31-73) Lymphocytes (%) (Auto) 25 % (24-48) Monocytes (%) (Auto) 8 % (0-9) Eosinophils (%) (Auto) 0 % (0-3) Basophils (%) (Auto) 0 % (0-3) Neutrophils # (Auto) 9.4 x10^3uL (1.8-7.7) H Lymphocytes # (Auto) 3.4 x10^3/uL (1.0-4.8) Monocytes # (Auto) 1.1 x10^3/uL (0.0-1.1) Eosinophils # (Auto) 0.0 x10^3/uL (0.0-0.7) Basophils # (Auto) 0.0 x10^3/uL (0.0-0.2) Sodium Level 144 mmol/L (136-145) Potassium Level 3.4 mmol/L (3.5-5.1) L Chloride Level 104 mmol/L (98-107) Carbon Dioxide Level 26 mmol/L (21-32) Anion Gap 14 (6-14) Blood Urea Nitrogen 8 mg/dL (7-20) Creatinine 0.7 mg/dL (0.6-1.0) Estimated GFR (Cockcroft-Gault) 88.9 BUN/Creatinine Ratio 11 (6-20) Glucose Level 111 mg/dL (70-99) H Calcium Level 9.7 mg/dL (8.5-10.1) Total Bilirubin 0.4 mg/dL (0.2-1.0) Aspartate Amino Transferase (AST) 23 U/L (15-37) Alanine Aminotransferase (ALT) 37 U/L (14-59) Alkaline Phosphatase 101 U/L (46-116) Creatine Kinase 136 U/L (26-192) Total Protein 7.5 g/dL (6.4-8.2) Albumin 3.8 g/dL (3.4-5.0) Albumin/Globulin Ratio 1.0 (1.0-1.7) Lipase 121 U/L (73-393) Urine Collection Type Unknown Urine Color Yellow Urine Clarity Clear Urine pH 8.0 Urine Specific Lucas 1.015 Urine Protein Negative mg/dL (NEG-TRACE) Urine Glucose (UA) Negative mg/dL (NEG) Urine Ketones (Stick) Negative mg/dL (NEG) Urine Blood Negative (NEG) Urine Nitrite Negative (NEG) Urine Bilirubin Negative (NEG) Urine Urobilinogen Dipstick 0.2 mg/dL (0.2 mg/dL) Urine Leukocyte Esterase Negative (NEG) Urine RBC 1-2 /HPF (0-2) Urine WBC 1-4 /HPF (0-4) Urine Squamous Epithelial Cells Many /LPF Urine Bacteria Few /HPF (0-FEW) Urine Mucus Marked /LPF Laboratory Tests 03/13/19 07:56 Laboratory Tests 03/13/19 07:56 EKG EKG [] Radiology/Procedures Radiology/Procedures [] Course & Med Decision Making Course & Med Decision Making Pertinent Labs and Imaging studies reviewed. (See chart for details) Evaluation of patient in ER showed 48-year-old female patient with history of back surgery yesterday and episode of nausea and vomiting since midnight. P nohemy had active vomiting in ER and treated with Zofran, Compazine, Reglan with partial improvement of her condition. Patient also had back pain and treated with fentanyl and morphine and IV fluid with partial improvement of her condition. Plan to admit patient with diagnosis of intractable nausea and vomiting. Patient requiring admission for further evaluation and treatment. Discussed with Dr. James who is in agreement with admission. Discussed findings and plan with patient and family, who acknowledge understanding and agreement. Dragon Disclaimer Dragon Disclaimer This electronic medical record was generated, in whole or in part, using a voice recognition dictation system. Departure Departure Impression: Primary Impression: Intractable nausea and vomiting Additional Impressions: Hypokalemia Acute post-operative pain Disposition: ADMITTED INPATIENT (at 0 [phone]) Admitting Physician: REGIS (Dr. James accepted admission at 0935) Condition: IMPROVED Referrals: DAHLIA ARREGUIN MD (PCP) Problem Qualifiers Primary Impression: Intractable nausea and vomiting Vomiting type: unspecified Qualified Codes: R11.2 - Nausea with vomiting, unspecified ANJEL FARRELL MD March 13, 2019 09:13
[2019-03-13 09:24] LABS: BACTERIA,URINE FEW /HPF (0-FEW); SQUAMOUS EPITHELIAL CELL,UR MANY /LPF
--- NOTE | 2019-03-13 09:38 | PDOC1 ---
History and Physical Date of Admission Date of Admission DATE: 03/13/19 TIME: 09:36 Identification/Chief Complaint Chief Complaint Intractable nausea and vomiting Source Source: Chart review, Patient History of Present Illness History of Present Illness Ms Edwards is a 48 yo F w/ PMHx OA, recent L5-S1 laminectomy who presents with intractable nausea and vomiting, unable to take her pain medications. She notes this is a chronic issue that continues to plague her, has been seeing GI in [facility]. Other than leukocytosis and hypokalemia, labs were WNL. She continues to vomit after 8mg zofran IV, compazine 10mg and reglan 10mg. Notes she has history of esophageal thickening previously. She also c/o intractable back pain, states she has not been able to hold down her MS contin 15mg BID for the last 2 doses and she was trying to cut back on her hydrocodone 7.5mg yesterday as well. Past Medical History Cardiovascular: No pertinent hx Pulmonary: No pertinent hx GI: GERD, Other (Vomiting) Heme/Onc: No pertinent hx Hepatobiliary: No pertinent hx Psych: No pertinent hx Musculoskeletal: low back pain Infectious disease: No pertinent hx ENT: No pertinent hx Renal/: No pertinent hx Endocrine: No pertinent hx Dermatology: No pertinent hx Past Surgical History Past Surgical History: Appendectomy, Cholecystectomy, , Tubal Ligation, Hysterectomy, Other (Lumbar laminectomy) Family History Family History: Family History Unknown Social History Smoke: <1 pack per day ALCOHOL: none Drugs: Marijuana Current Medications Current Medications Current Medications Sodium Chloride 1,000 ml @ 1,000 mls/hr Q1H IV Last administered on 03/13/19at 07:54; Start 03/13/19 at 07:54; Stop 03/13/19 at 08:53; Status DC Fentanyl Citrate (Fentanyl 2ml Vial) 50 mcg 1X ONCE IV Last administered on 03/13/19at 08:05; Start 03/13/19 at 08:00; Stop 03/13/19 at 08:01; Status DC Ondansetron HCl (Zofran) 4 mg 1X ONCE IV Last administered on 03/13/19at 08:04; Start 03/13/19 at 08:00; Stop 03/13/19 at 08:03; Status DC Prochlorperazine Edisylate (Compazine) 10 mg 1X ONCE IV Last administered on 03/13/19at 08:42; Start 03/13/19 at 08:45; Stop 03/13/19 at 08:46; Status DC Metoclopramide HCl (Reglan Vial) 10 mg 1X ONCE IV Last administered on 03/13/19at 09:28; Start 03/13/19 at 09:00; Stop 03/13/19 at 09:04; Status DC Morphine Sulfate (Morphine Sulfate) 4 mg 1X ONCE IV Last administered on 03/13/19at 09:35; Start 03/13/19 at 09:00; Stop 03/13/19 at 09:04; Status DC Active Scripts Active Colace (Docusate Sodium) 100 Mg Capsule 100 Mg PO BID Ondansetron Odt (Ondansetron) 4 Mg Tab.rapdis 1 Tab PO PRN Q6HRS PRN Reported Morphine Sulfate Er (Morphine Sulfate) 15 Mg Tablet.er 1 Tab PO BID Lyrica (Pregabalin) 50 Mg Capsule 50 Mg PO BID Protonix (Pantoprazole Sodium) 20 Mg Tablet.dr 20 Mg PO DAILY Prednisone 1 Mg Tablet 5 Mg PO PRN DAILY PRN Valium (Diazepam) 5 Mg Tablet 5 Mg PO TID Hydrocodone-Acetamin 7.5-325 (Hydrocodone/Acetaminophen) 1 Each Tablet 1 Each PO [id number] Allergies Allergies: Coded Allergies: bupropion (Unverified Allergy, Intermediate, 03/13/19) NSAIDS (Non-Steroidal Anti-Inflamma (Verified Adverse Reaction, Intermediate, Nausea and Vomiting, 03/12/19) HX OF ULCER-AVOIDS NSAIDS aspirin (Verified Adverse Reaction, Intermediate, Nausea, 03/12/19) HX OF ULCER-AVOIDS ASA ROS General: YES: Chills, Fatigue, Malaise, Appetite PSYCHOLOGICAL ROS: No: Anxiety, Behavioral Disorder, Concentration difficultie, Decreased libido, Depression, Disorientation, Hallucinations, Hostility, Irritablity, Memory difficulties, Mood Swings, Obsessive thoughts, Physical abuse, Sexual abuse, Sleep disturbances, Suicidal ideation, Other Eyes: No Blurry vision, No Decreased vision, No Double vision, No Dry eyes, No Excessive tearing, No Eye Pain, No Itchy Eyes, No Loss of vision, No Photophobia, No Scotomata, No Uses contacts, No Uses glasses, No Other HEENT: No: Heacaches, Visual Changes, Hearing change, Nasal congestion, Nasal discharge, Oral lesions, Sinus pain, Sore Throat, Epistaxis, Sneezing, Snoring, Tinnitus, Vertigo, Vocal changes, Other ALLERGY AND IMMUNOLOGY: No: Hives, Insect Bite Sensitivity, Itchy/Watery Eyes, Nasal Congestion, Post Nasal Drip, Seasonal Allergies, Other Hematological and Lymphatic: No: Bleeding Problems, Blood Clots, Blood Transfusions, Brusing, Night Sweats, Pallor, Swollen Lymph Nodes, Other ENDOCRINE: No: Breast Changes, Galactorrhea, Hair Pattern Changes, Hot Flashes, Malaise/lethargy, Mood Swings, Palpitations, Polydipsia/polyuria, Skin Changes, Temperature Intolerance, Unexpected Weight Changes, Other Breast: No New/Changing Breast Lumps, No Nipple changes, No Nipple discharge, N o Other Respiratory: No: Cough, Hemoptysis, Orthopnea, Pleuritic Pain, Shortness of breath, SOB with excertion, Sputum Changes, Stridor, Tachypnea, Wheezing, Other Cardiovascular: No Chest Pain, No Palpitations, No Orthopnea, No Paroxysmal Noc. Dyspnea, No Edema, No Lt Headedness, No Other Gastrointestinal: Yes Nausea, Yes Vomiting; No Abdominal Pain, No Diarrhea, No Constipation, No Melena, No Hematochezia, No Other Genitourinary: No Dysuria, No Frequency, No Incontinence, No Hematuria, No Retention, No Discharge, No Urgency, No Pain, No Flank Pain, No Other, No , No , No , No , No , No , No Musculoskeletal: No Gait Disturbance, No Joint Pain, No Joint Stiffness, No Joint Swelling, No Muscle Pain, No Muscular Weakness, No Pain In:, No Swelling In:, No Other Neurological: No Behavorial Changes, No Bowel/Bladder ControlChng, No Confusio n, No Dizziness, No Gait Disturbance, No Headaches, No Impaired Coord/balance, No Memory Loss, No Numbness/Tingling, No Seizures, No Speech Problems, No Tremors, No Visual Changes, No Weakness, No Other Skin: No Dry Skin, No Eczema, No Hair Changes, No Lumps, No Mole Changes, No Mottling, No Nail Changes, No Pruritus, No Rash, No Skin Lesion Changes, No Other, No Acne Physical Exam General: Alert, Oriented X3, Cooperative, mild distress HEENT: Atraumatic, PERRLA, EOMI, Mucous membr. moist/pink Lungs: Clear to auscultation, Normal air movement Heart: S1S2, RRR, no thrills Abdomen: Soft, No tenderness, No hepatosplenomegaly, No masses, Other (Hyperactive bowel sounds) Rectal Exam: not examined Extremities: No clubbing, No cyanosis, No edema, Normal pulses, Other (singer back tender, dressing intact) Skin: No rashes, No breakdown, No significant lesion Neuro: Normal gait, Normal speech, Strength at 5/5 X4 ext, Normal tone, Sensation intact, Cranial nerves 3-12 NL, Reflexes 2+ Psych/Mental Status: Mental status NL, Mood NL Vitals Vitals Vital Signs Date Time Temp Pulse Resp B/P (MAP) Pulse Ox O2 Delivery O2 Flow Rate FiO2 03/13/19 08:05 14 100 Room Air 03/13/19 07:38 98.5 72 164/105 (124) 98.5 Labs Labs Laboratory Tests Test 03/13/19 07:56 03/13/19 08:55 White Blood Count 14.0 x10^3/uL (4.0-11.0) Red Blood Count 4.43 x10^6/uL (3.50-5.40) Hemoglobin 14.3 g/dL (12.0-15.5) Hematocrit 42.7 % (36.0-47.0) Mean Corpuscular Volume 96 fL (79-100) Mean Corpuscular Hemoglobin 32 pg (25-35) Mean Corpuscular Hemoglobin Concent 33 g/dL (31-37) Red Cell Distribution Width 12.9 % (11.5-14.5) Platelet Count 327 x10^3/uL (140-400) Neutrophils (%) (Auto) 67 % (31-73) Lymphocytes (%) (Auto) 25 % (24-48) Monocytes (%) (Auto) 8 % (0-9) Eosinophils (%) (Auto) 0 % (0-3) Basophils (%) (Auto) 0 % (0-3) Neutrophils # (Auto) 9.4 x10^3uL (1.8-7.7) Lymphocytes # (Auto) 3.4 x10^3/uL (1.0-4.8) Monocytes # (Auto) 1.1 x10^3/uL (0.0-1.1) Eosinophils # (Auto) 0.0 x10^3/uL (0.0-0.7) Basophils # (Auto) 0.0 x10^3/uL (0.0-0.2) Sodium Level 144 mmol/L (136-145) Potassium Level 3.4 mmol/L (3.5-5.1) Chloride Level 104 mmol/L (98-107) Carbon Dioxide Level 26 mmol/L (21-32) Anion Gap 14 (6-14) Blood Urea Nitrogen 8 mg/dL (7-20) Creatinine 0.7 mg/dL (0.6-1.0) Estimated GFR (Cockcroft-Gault) 88.9 BUN/Creatinine Ratio 11 (6-20) Glucose Level 111 mg/dL (70-99) Calcium Level 9.7 mg/dL (8.5-10.1) Total Bilirubin 0.4 mg/dL (0.2-1.0) Aspartate Amino Transf (AST/SGOT) 23 U/L (15-37) Alanine Aminotransferase (ALT/SGPT) 37 U/L (14-59) Alkaline Phosphatase 101 U/L (46-116) Creatine Kinase 136 U/L (26-192) Total Protein 7.5 g/dL (6.4-8.2) Albumin 3.8 g/dL (3.4-5.0) Albumin/Globulin Ratio 1.0 (1.0-1.7) Lipase 121 U/L (73-393) Urine Collection Type Unknown Urine Color Yellow Urine Clarity Clear Urine pH 8.0 Urine Specific [place] 1.015 Urine Protein Negative mg/dL (NEG-TRACE) Urine Glucose (UA) Negative mg/dL (NEG) Urine Ketones (Stick) Negative mg/dL (NEG) Urine Blood Negative (NEG) Urine Nitrite Negative (NEG) Urine Bilirubin Negative (NEG) Urine Urobilinogen Dipstick 0.2 mg/dL (0.2 mg/dL) Urine Leukocyte Esterase Negative (NEG) Urine RBC 1-2 /HPF (0-2) Urine WBC 1-4 /HPF (0-4) Urine Squamous Epithelial Cells Many /LPF Urine Bacteria Few /HPF (0-FEW) Urine Mucus Marked /LPF Laboratory Tests Test 03/13/19 07:56 03/13/19 08:55 White Blood Count 14.0 x10^3/uL (4.0-11.0) Red Blood Count 4.43 x10^6/uL (3.50-5.40) Hemoglobin 14.3 g/dL (12.0-15.5) Hematocrit 42.7 % (36.0-47.0) Mean Corpuscular Volume 96 fL (79-100) Mean Corpuscular Hemoglobin 32 pg (25-35) Mean Corpuscular Hemoglobin Concent 33 g/dL (31-37) Red Cell Distribution Width 12.9 % (11.5-14.5) Platelet Count 327 x10^3/uL (140-400) Neutrophils (%) (Auto) 67 % (31-73) Lymphocytes (%) (Auto) 25 % (24-48) Monocytes (%) (Auto) 8 % (0-9) Eosinophils (%) (Auto) 0 % (0-3) Basophils (%) (Auto) 0 % (0-3) Neutrophils # (Auto) 9.4 x10^3uL (1.8-7.7) Lymphocytes # (Auto) 3.4 x10^3/uL (1.0-4.8) Monocytes # (Auto) 1.1 x10^3/uL (0.0-1.1) Eosinophils # (Auto) 0.0 x10^3/uL (0.0-0.7) Basophils # (Auto) 0.0 x10^3/uL (0.0-0.2) Sodium Level 144 mmol/L (136-145) Potassium Level 3.4 mmol/L (3.5-5.1) Chloride Level 104 mmol/L (98-107) Carbon Dioxide Level 26 mmol/L (21-32) Anion Gap 14 (6-14) Blood Urea Nitrogen 8 mg/dL (7-20) Creatinine 0.7 mg/dL (0.6-1.0) Estimated GFR (Cockcroft-Gault) 88.9 BUN/Creatinine Ratio 11 (6-20) Glucose Level 111 mg/dL (70-99) Calcium Level 9.7 mg/dL (8.5-10.1) Total Bilirubin 0.4 mg/dL (0.2-1.0) Aspartate Amino Transf (AST/SGOT) 23 U/L (15-37) Alanine Aminotransferase (ALT/SGPT) 37 U/L (14-59) Alkaline Phosphatase 101 U/L (46-116) Creatine Kinase 136 U/L (26-192) Total Protein 7.5 g/dL (6.4-8.2) Albumin 3.8 g/dL (3.4-5.0) Albumin/Globulin Ratio 1.0 (1.0-1.7) Lipase 121 U/L (73-393) Urine Collection Type Unknown Urine Color Yellow Urine Clarity Clear Urine pH 8.0 Urine Specific [place] 1.015 Urine Protein Negative mg/dL (NEG-TRACE) Urine Glucose (UA) Negative mg/dL (NEG) Urine Ketones (Stick) Negative mg/dL (NEG) Urine Blood Negative (NEG) Urine Nitrite Negative (NEG) Urine Bilirubin Negative (NEG) Urine Urobilinogen Dipstick 0.2 mg/dL (0.2 mg/dL) Urine Leukocyte Esterase Negative (NEG) Urine RBC 1-2 /HPF (0-2) Urine WBC 1-4 /HPF (0-4) Urine Squamous Epithelial Cells Many /LPF Urine Bacteria Few /HPF (0-FEW) Urine Mucus Marked /LPF VTE Prophylaxis Ordered VTE Prophylaxis Devices: Yes VTE Pharmacological Prophylaxi: Yes Assessment/Plan Assessment/Plan A/P: Intractable nausea and vomiting - is a marijuana user, counseled on cessation. Historically has had this problem chronically. Will consult GI for assistance. IV jeff reglan for now Smoker - counseled on cessation Chronic lower back pain - s/p laminectomy, will add IV pain medications, cont home oral meds if she can hold them down. Consult neurosurgery Hypokalemia - will replace IV, check mag FEN - NPO, can advance to clears as tolerated PPX - Heparin FULL CODE Inpatient for intractable nausea and vomiting, unable to eat, likely 2 midnights. MOE SOARES MD March 13, 2019 09:38
[2019-03-13 11:18] VITALS: BP 132/85
[2019-03-13] MEDS: IV NORMAL SALINE 1000ML BAG 1,000 ML IV SCH (11:46)
[2019-03-13] MEDS ORDERED: NITR100C6 PO (14:16)
[2019-03-13] MEDS ORDERED: MAGNESIUM HYDROXIDE 2,400 MG/30 ML ORAL.SUSP. PO PRN (14:30)
[2019-03-13] MEDS ORDERED: METOCLOPRAMIDE HCL 10 MG/2 ML VIAL. IV PRN (14:30)
[2019-03-13] MEDS ORDERED: ACETAMINOPHEN 325 MG TABLET. PO PRN (14:30)
[2019-03-13] MEDS ORDERED: ONDANSETRON ODT 4 MG TAB.RAPDIS. PO PRN (14:30)
[2019-03-13] MEDS ORDERED: POTASSIUM CL 20MEQ-0.45% NACL 1,000 ML IV ONE (14:30)
[2019-03-13 15:00] VITALS: BP 158/86
[2019-03-13] MEDS: diazePAM 5 MG TABLET PO SCH ×2 (15:00→21:00)
[2019-03-13] MEDS: HYDROcodone/APAP 7.5/325MG 1 TAB TABLET PO SCH (15:00)
[2019-03-13] MEDS: predniSONE 5 MG TABLET PO SCH (15:00)
--- NOTE | 2019-03-13 15:04 | PDOC2 ---
GI CONSULT Reason For Consult: Intractable n/v - chronic HPI: HPI: 48 y/o female who we have seen in the past. Issues w/ recurrent n/v for years - can occur every two weeks, months, or years. Recently (10 days ago) hospitalized at [facility] for same - says she had a CT and was diagnosed w/ "gastritis." Has also recently had a GES there (says normal) and EGD (says w/ "bile in my stomach). Says she was advised to elevate the head of bed while sleeping. H/o GERD on daily PPI. Uses Zofran ODT PRN. +cannabinoids in the past. S/p cholecystectomy. UGI/SBFT unrevealing here last year. No previous colonoscopy. Chronic back pain on morphine and [place] (?and prednisone). S/p hemilaminotomy and microdiskectomy L5-S1 on left yesterday at [facility]. Bilious emesis began last night - unable to keep pain meds down. Currently drowsy and not feeling well, [id number] present. No diarrhea or bleeding. Abd sore from retching. PMH: PMH: chronic n/v, GERD, chronic pain, depression/anxiety appendectomy, cholecystectomy, , hysterectomy/BSO, right knee surgery FH: Family History: CAD, DM, Other (adopted) Social History: Smoke: <1 pack per day ALCOHOL: rare Drugs: Marijuana ROS: GEN: Denies fevers, chills, sweats HEENT: Denies blurred vision, sore throat CV: Denies chest pain RESP: Denies shortness of air, cough GI: Per HPI : Denies hematuria, dysuria ENDO: +4 pound weight loss in a couple weeks NEURO: Denies confusion, dizziness MSK: +back pain SKIN: Denies jaundice, pruritus Vitals: Vitals: Vital Signs Date Time Temp Pulse Resp B/P (MAP) Pulse Ox O2 Delivery O2 Flow Rate FiO2 03/13/19 11:18 98.1 95 18 132/85 (101) 98 Room Air 98.1 Labs: Labs: Laboratory Tests Test 03/13/19 07:56 03/13/19 08:55 White Blood Count 14.0 x10^3/uL (4.0-11.0) Red Blood Count 4.43 x10^6/uL (3.50-5.40) Hemoglobin 14.3 g/dL (12.0-15.5) Hematocrit 42.7 % (36.0-47.0) Mean Corpuscular Volume 96 fL (79-100) Mean Corpuscular Hemoglobin 32 pg (25-35) Mean Corpuscular Hemoglobin Concent 33 g/dL (31-37) Red Cell Distribution Width 12.9 % (11.5-14.5) Platelet Count 327 x10^3/uL (140-400) Neutrophils (%) (Auto) 67 % (31-73) Lymphocytes (%) (Auto) 25 % (24-48) Monocytes (%) (Auto) 8 % (0-9) Eosinophils (%) (Auto) 0 % (0-3) Basophils (%) (Auto) 0 % (0-3) Neutrophils # (Auto) 9.4 x10^3uL (1.8-7.7) Lymphocytes # (Auto) 3.4 x10^3/uL (1.0-4.8) Monocytes # (Auto) 1.1 x10^3/uL (0.0-1.1) Eosinophils # (Auto) 0.0 x10^3/uL (0.0-0.7) Basophils # (Auto) 0.0 x10^3/uL (0.0-0.2) Sodium Level 144 mmol/L (136-145) Potassium Level 3.4 mmol/L (3.5-5.1) Chloride Level 104 mmol/L (98-107) Carbon Dioxide Level 26 mmol/L (21-32) Anion Gap 14 (6-14) Blood Urea Nitrogen 8 mg/dL (7-20) Creatinine 0.7 mg/dL (0.6-1.0) Estimated GFR (Cockcroft-Gault) 88.9 BUN/Creatinine Ratio 11 (6-20) Glucose Level 111 mg/dL (70-99) Calcium Level 9.7 mg/dL (8.5-10.1) Total Bilirubin 0.4 mg/dL (0.2-1.0) Aspartate Amino Transf (AST/SGOT) 23 U/L (15-37) Alanine Aminotransferase (ALT/SGPT) 37 U/L (14-59) Alkaline Phosphatase 101 U/L (46-116) Creatine Kinase 136 U/L (26-192) Total Protein 7.5 g/dL (6.4-8.2) Albumin 3.8 g/dL (3.4-5.0) Albumin/Globulin Ratio 1.0 (1.0-1.7) Lipase 121 U/L (73-393) Urine Collection Type Unknown Urine Color Yellow Urine Clarity Clear Urine pH 8.0 Urine Specific [place] 1.015 Urine Protein Negative mg/dL (NEG-TRACE) Urine Glucose (UA) Negative mg/dL (NEG) Urine Ketones (Stick) Negative mg/dL (NEG) Urine Blood Negative (NEG) Urine Nitrite Negative (NEG) Urine Bilirubin Negative (NEG) Urine Urobilinogen Dipstick 0.2 mg/dL (0.2 mg/dL) Urine Leukocyte Esterase Negative (NEG) Urine RBC 1-2 /HPF (0-2) Urine WBC 1-4 /HPF (0-4) Urine Squamous Epithelial Cells Many /LPF Urine Bacteria Few /HPF (0-FEW) Urine Mucus Marked /LPF Allergies: Coded Allergies: bupropion (Unverified Allergy, Intermediate, 03/13/19) NSAIDS (Non-Steroidal Anti-Inflamma (Verified Adverse Reaction, Intermediate, Nausea and Vomiting, 03/12/19) HX OF ULCER-AVOIDS NSAIDS aspirin (Verified Adverse Reaction, Intermediate, Nausea, 03/12/19) HX OF ULCER-AVOIDS ASA Medications: Current Medications Medications (Trade) Dose Ordered Sig/John Route PRN Reason Start Time Stop Time Status Last Admin Dose Admin Sodium Chloride 1,000 ml @ 1,000 mls/hr Q1H IV 03/13/19 07:54 03/13/19 08:53 DC 03/13/19 07:54 Fentanyl Citrate (Fentanyl 2ml Vial) 50 mcg 1X ONCE IV 03/13/19 08:00 03/13/19 08:01 DC 03/13/19 08:05 Ondansetron HCl (Zofran) 4 mg 1X ONCE IV 03/13/19 08:00 03/13/19 08:03 DC 03/13/19 08:04 Prochlorperazine Edisylate (Compazine) 10 mg 1X ONCE IV 03/13/19 08:45 03/13/19 08:46 DC 03/13/19 08:42 Metoclopramide HCl (Reglan Vial) 10 mg 1X ONCE IV 03/13/19 09:00 03/13/19 09:04 DC 03/13/19 09:28 Morphine Sulfate (Morphine Sulfate) 4 mg 1X ONCE IV 03/13/19 09:00 03/13/19 09:04 DC 03/13/19 09:35 Sodium Chloride 1,000 ml @ 150 mls/hr Q6H40M IV 03/13/19 10:06 03/14/19 10:05 03/13/19 11:46 Ondansetron HCl (Zofran) 4 mg 1X ONCE IV 03/13/19 12:15 03/13/19 12:16 DC 03/13/19 13:50 Imaging: Imaging: none PE: GEN: ill - bilious emesis in basin HEENT: Atraumatic, PERRL LUNGS: CTAB HEART: RRR ABD: NABS, S/ND, vague tender throughout EXTREMITY: No edema SKIN: bandage lower back NEURO/PSYCH: A & O 3, drowsy A/P: A/P: S/p back surgery 03/12/19 Recurrent n/v - workup as above GERD - on PPI CRC screen - average risk S/p cholecystectomy Chronic pain on [place] and morphine at home -- Agree w/ PPI though will change to IV for now. Check KUB and tox screen. Diet as able. Has Zofran and Reglan per primary. Will request records from [facility]. BEST BROOKS March 13, 2019 15:03
[2019-03-13] MEDS: MORPHINE SULFATE 10 MG/ML VIAL. IV PRN ×2 (16:07→20:32)
[2019-03-13] MEDS: HEPARIN for SUB-Q USE 5,000 UNIT/ML VIAL. SQ SCH ×2 (16:15→22:23)
--- NOTE | 2019-03-13 16:24 | RAD ---
CRISTINE, 03/13/2019: HISTORY: Nausea, vomiting, abdominal pain There is a moderate amount gas and stool in the right colon. The abdominal gas pattern is otherwise unremarkable. Surgical clips are evident in the right upper quadrant. There is no evidence of organomegaly. No abnormal intra-abdominal calcifications are seen. There is a minimal thoracolumbar scoliosis. IMPRESSION: Increased gas and stool in the right colon. Electronically signed by: Alexandre Aldrich MD (03/13/2019 4:22 PM) [facility]
--- NOTE | 2019-03-13 16:57 | NUR ---
Pt arrived to unit at approx 1040 accompanied by mother in law and was oriented to room. Assessment completed. Will continue to monitor.
--- NOTE | 2019-03-13 16:58 | NUR ---
Did not administer PO meds as pt is continuing to vomit. Will continue to monitor pt.
[2019-03-13] MEDS: LUBIPROSTONE 8 MCG CAPSULE PO SCH (17:00)
[2019-03-13 19:00] VITALS: BP 161/94
[2019-03-13] MEDS: ONDANSETRON PF 4 MG/2 ML VIAL. IV PRN (20:36)
[2019-03-13] MEDS: DOCUSATE SODIUM 100 MG CAPSULE. PO SCH (21:00)
[2019-03-13] MEDS: PREGABALIN 50 MG CAPSULE PO SCH (21:00)
[2019-03-13] MEDS: SENNOSIDES/DOCUSATE 8.6/50MG TABLET. PO SCH (21:00)
[2019-03-13] MEDS: MORPHINE ER 15 MG TABLET.ER PO SCH (21:00)
--- NOTE | 2019-03-13 21:51 | PDOC ---
Provider Note Provider Note Patient seen and examined at 1530 s/p lumbar microdiscectomy L5- S1 left 03/12/19, did well and discharged home readmitted with n/v neuro intact, wound flat and dry reports improvement in leg pain and sensation in foot, reports that her back is painful takes [place] and Morphine chronically per PCP GI is following [facility] call with questions MALGORZATA PEARSON APRN March 13, 2019 21:51
[2019-03-13] MEDS: FAMOTIDINE 20 MG/2 ML VIAL IVP SCH (22:20)
--- NOTE | 2019-03-13 22:44 | NUR ---
Patient 2100 PO medication not administered. Patient continues vomiting. Doctor notified, the nurse will continue to monitor the patient.
[2019-03-13 23:00] VITALS: BP 167/95
[2019-03-14] MEDS: IV NORMAL SALINE 1000ML BAG 1,000 ML IV SCH ×2 (00:04→06:35)
[2019-03-14] MEDS: MORPHINE SULFATE 10 MG/ML VIAL. IV PRN ×3 (00:05→12:54)
[2019-03-14 03:00] VITALS: BP 108/67
[2019-03-14] MEDS: ONDANSETRON PF 4 MG/2 ML VIAL. IV PRN (04:14)
[2019-03-14 05:04] LABS: BASO % 0 % (0-3); EOS # 0.1 x10^3/uL (0.0-0.7); EOS % 1 % (0-3); HEMATOCRIT 34.6 % (36.0-47.0); HEMOGLOBIN 11.7 g/dL (12.0-15.5); LYMPH # 3.6 x10^3/uL (1.0-4.8); LYMPH % 44 % (24-48); MEAN CORPUSCULAR HEMOGLOBIN 33 pg (25-35); MEAN CORPUSCULAR HGB CONC 34 g/dL (31-37); MEAN CORPUSCULAR VOLUME 97 fL (79-100); MONO # 0.7 x10^3/uL (0.0-1.1); MONO % 8 % (0-9); NEUT # 3.9 x10^3uL (1.8-7.7); NEUT % 47 % (31-73); PLATELET COUNT 252 x10^3/uL (140-400); RED BLOOD COUNT 3.59 x10^6/uL (3.50-5.40); RED CELL DISTRIBUTION WIDTH 12.7 % (11.5-14.5); WHITE BLOOD COUNT 8.3 x10^3/uL (4.0-11.0)
[2019-03-14 05:35] LABS: CALCIUM 8.5 mg/dL (8.5-10.1); CREATININE 0.5 mg/dL (0.6-1.0); GFR 131.1; POTASSIUM 3.8 mmol/L (3.5-5.1)
[2019-03-14] MEDS: HEPARIN for SUB-Q USE 5,000 UNIT/ML VIAL. SQ SCH ×2 (06:37→14:00)
[2019-03-14 07:00] VITALS: BP 106/63
[2019-03-14] MEDS ORDERED: PANTOPRAZOLE 40 MG TABLET.DR. PO SCH (07:30)
[2019-03-14] MEDS: predniSONE 5 MG TABLET PO SCH (08:41)
[2019-03-14] MEDS: PREGABALIN 50 MG CAPSULE PO SCH (08:41)
[2019-03-14] MEDS: DOCUSATE SODIUM 100 MG CAPSULE. PO SCH (08:42)
[2019-03-14] MEDS: MORPHINE ER 15 MG TABLET.ER PO SCH (08:42)
[2019-03-14] MEDS: LUBIPROSTONE 8 MCG CAPSULE PO SCH (08:42)
[2019-03-14] MEDS: HYDROcodone/APAP 7.5/325MG 1 TAB TABLET PO SCH ×2 (08:42→14:00)
[2019-03-14] MEDS: SENNOSIDES/DOCUSATE 8.6/50MG TABLET. PO SCH (08:42)
[2019-03-14] MEDS: diazePAM 5 MG TABLET PO SCH ×2 (08:42→14:00)
[2019-03-14] MEDS: FAMOTIDINE 20 MG/2 ML VIAL IVP SCH (08:43)
[2019-03-14] MEDS ORDERED: POLYETHYLENE GLYCOL 3350 17 GM PACKET. PO SCH (09:00)
[2019-03-14 11:00] VITALS: BP 97/58
--- NOTE | 2019-03-14 11:19 | PDOC ---
[employer] PROGRESS NOTE Chief Complaint Chief Complaint Nausea vomiting with history of cyclic vomiting syndrome S/p back surgery 03/12/19 Recurrent n/v - workup as above GERD - on PPI S/p cholecystectomy Chronic pain on Warren and morphine at home History of Present Illness History of Present Illness Patient seen and examined She requests discharge states she feels better I discussed this with her nurse I left a prescription for some Compazine at home I try to advance her diet this afternoon if she tolerates it we'll are going okay with subspecialist Vitals Vitals Vital Signs Date Time Temp Pulse Resp B/P (MAP) Pulse Ox O2 Delivery O2 Flow Rate FiO2 03/14/19 08:42 20 94 Room Air 03/14/19 07:00 97.4 55 106/63 (77) 97.4 Physical Exam General: Alert, Oriented X3, Cooperative, mild distress Heart: Regular rate, Normal S1 Lungs: Clear Abdomen: Soft, No tenderness, No hepatosplenomegaly, No masses, Other (Hyperactive bowel sounds) Extremities: No clubbing, No cyanosis, No edema, Normal pulses, Other (cloth mercerizer back tender, dressing intact) Skin: No rashes, No breakdown, No significant lesion Labs Labs: Laboratory Tests Test 03/14/19 04:10 White Blood Count 8.3 x10^3/uL (4.0-11.0) Red Blood Count 3.59 x10^6/uL (3.50-5.40) Hemoglobin 11.7 g/dL (12.0-15.5) Hematocrit 34.6 % (36.0-47.0) Mean Corpuscular Volume 97 fL (79-100) Mean Corpuscular Hemoglobin 33 pg (25-35) Mean Corpuscular Hemoglobin Concent 34 g/dL (31-37) Red Cell Distribution Width 12.7 % (11.5-14.5) Platelet Count 252 x10^3/uL (140-400) Neutrophils (%) (Auto) 47 % (31-73) Lymphocytes (%) (Auto) 44 % (24-48) Monocytes (%) (Auto) 8 % (0-9) Eosinophils (%) (Auto) 1 % (0-3) Basophils (%) (Auto) 0 % (0-3) Neutrophils # (Auto) 3.9 x10^3uL (1.8-7.7) Lymphocytes # (Auto) 3.6 x10^3/uL (1.0-4.8) Monocytes # (Auto) 0.7 x10^3/uL (0.0-1.1) Eosinophils # (Auto) 0.1 x10^3/uL (0.0-0.7) Basophils # (Auto) 0.0 x10^3/uL (0.0-0.2) Sodium Level 140 mmol/L (136-145) Potassium Level 3.8 mmol/L (3.5-5.1) Chloride Level 105 mmol/L (98-107) Carbon Dioxide Level 23 mmol/L (21-32) Anion Gap 12 (6-14) Blood Urea Nitrogen 5 mg/dL (7-20) Creatinine 0.5 mg/dL (0.6-1.0) Estimated GFR (Cockcroft-Gault) 131.1 Glucose Level 90 mg/dL (70-99) Calcium Level 8.5 mg/dL (8.5-10.1) Review of Systems Review of Systems No new complaints request discharge Assessment and Plan Assessmemt and Plan Problems Medical Problems: (1) Acute post-operative pain Status: Acute (2) Hypokalemia Status: Acute Nausea vomiting with history of cyclic vomiting syndrome S/p back surgery 03/12/19 Recurrent n/v - workup as above GERD - on PPI S/p cholecystectomy Chronic pain on Warren and morphine at home Plan When necessary Compazine (she states that works better than Zofran) IV fluids Advance diet She wants to go home secondary We'll put in discharge tentatively if subspecialist agree and I discussed this with the nurse Left prescription for the when necessary Zofran at home Comment Review of Relevant I have reviewed the following items alon (where applicable) has been applied. Labs Laboratory Tests Test 03/13/19 07:56 03/13/19 08:55 03/14/19 04:10 White Blood Count 14.0 x10^3/uL (4.0-11.0) 8.3 x10^3/uL (4.0-11.0) Red Blood Count 4.43 x10^6/uL (3.50-5.40) 3.59 x10^6/uL (3.50-5.40) Hemoglobin 14.3 g/dL (12.0-15.5) 11.7 g/dL (12.0-15.5) Hematocrit 42.7 % (36.0-47.0) 34.6 % (36.0-47.0) Mean Corpuscular Volume 96 fL (79-100) 97 fL (79-100) Mean Corpuscular Hemoglobin 32 pg (25-35) 33 pg (25-35) Mean Corpuscular Hemoglobin Concent 33 g/dL (31-37) 34 g/dL (31-37) Red Cell Distribution Width 12.9 % (11.5-14.5) 12.7 % (11.5-14.5) Platelet Count 327 x10^3/uL (140-400) 252 x10^3/uL (140-400) Neutrophils (%) (Auto) 67 % (31-73) 47 % (31-73) Lymphocytes (%) (Auto) 25 % (24-48) 44 % (24-48) Monocytes (%) (Auto) 8 % (0-9) 8 % (0-9) Eosinophils (%) (Auto) 0 % (0-3) 1 % (0-3) Basophils (%) (Auto) 0 % (0-3) 0 % (0-3) Neutrophils # (Auto) 9.4 x10^3uL (1.8-7.7) 3.9 x10^3uL (1.8-7.7) Lymphocytes # (Auto) 3.4 x10^3/uL (1.0-4.8) 3.6 x10^3/uL (1.0-4.8) Monocytes # (Auto) 1.1 x10^3/uL (0.0-1.1) 0.7 x10^3/uL (0.0-1.1) Eosinophils # (Auto) 0.0 x10^3/uL (0.0-0.7) 0.1 x10^3/uL (0.0-0.7) Basophils # (Auto) 0.0 x10^3/uL (0.0-0.2) 0.0 x10^3/uL (0.0-0.2) Sodium Level 144 mmol/L (136-145) 140 mmol/L (136-145) Potassium Level 3.4 mmol/L (3.5-5.1) 3.8 mmol/L (3.5-5.1) Chloride Level 104 mmol/L (98-107) 105 mmol/L (98-107) Carbon Dioxide Level 26 mmol/L (21-32) 23 mmol/L (21-32) Anion Gap 14 (6-14) 12 (6-14) Blood Urea Nitrogen 8 mg/dL (7-20) 5 mg/dL (7-20) Creatinine 0.7 mg/dL (0.6-1.0) 0.5 mg/dL (0.6-1.0) Estimated GFR (Cockcroft-Gault) 88.9 131.1 BUN/Creatinine Ratio 11 (6-20) Glucose Level 111 mg/dL (70-99) 90 mg/dL (70-99) Calcium Level 9.7 mg/dL (8.5-10.1) 8.5 mg/dL (8.5-10.1) Total Bilirubin 0.4 mg/dL (0.2-1.0) Aspartate Amino Transf (AST/SGOT) 23 U/L (15-37) Alanine Aminotransferase (ALT/SGPT) 37 U/L (14-59) Alkaline Phosphatase 101 U/L (46-116) Creatine Kinase 136 U/L (26-192) Total Protein 7.5 g/dL (6.4-8.2) Albumin 3.8 g/dL (3.4-5.0) Albumin/Globulin Ratio 1.0 (1.0-1.7) Lipase 121 U/L (73-393) Urine Collection Type Unknown Urine Color Yellow Urine Clarity Clear Urine pH 8.0 Urine Specific [place] 1.015 Urine Protein Negative mg/dL (NEG-TRACE) Urine Glucose (UA) Negative mg/dL (NEG) Urine Ketones (Stick) Negative mg/dL (NEG) Urine Blood Negative (NEG) Urine Nitrite Negative (NEG) Urine Bilirubin Negative (NEG) Urine Urobilinogen Dipstick 0.2 mg/dL (0.2 mg/dL) Urine Leukocyte Esterase Negative (NEG) Urine RBC 1-2 /HPF (0-2) Urine WBC 1-4 /HPF (0-4) Urine Squamous Epithelial Cells Many /LPF Urine Bacteria Few /HPF (0-FEW) Urine Mucus Marked /LPF Laboratory Tests Test 6/1/19 04:10 White Blood Count 8.3 x10^3/uL (4.0-11.0) Red Blood Count 3.59 x10^6/uL (3.50-5.40) Hemoglobin 11.7 g/dL (12.0-15.5) Hematocrit 34.6 % (36.0-47.0) Mean Corpuscular Volume 97 fL (79-100) Mean Corpuscular Hemoglobin 33 pg (25-35) Mean Corpuscular Hemoglobin Concent 34 g/dL (31-37) Red Cell Distribution Width 12.7 % (11.5-14.5) Platelet Count 252 x10^3/uL (140-400) Neutrophils (%) (Auto) 47 % (31-73) Lymphocytes (%) (Auto) 44 % (24-48) Monocytes (%) (Auto) 8 % (0-9) Eosinophils (%) (Auto) 1 % (0-3) Basophils (%) (Auto) 0 % (0-3) Neutrophils # (Auto) 3.9 x10^3uL (1.8-7.7) Lymphocytes # (Auto) 3.6 x10^3/uL (1.0-4.8) Monocytes # (Auto) 0.7 x10^3/uL (0.0-1.1) Eosinophils # (Auto) 0.1 x10^3/uL (0.0-0.7) Basophils # (Auto) 0.0 x10^3/uL (0.0-0.2) Sodium Level 140 mmol/L (136-145) Potassium Level 3.8 mmol/L (3.5-5.1) Chloride Level 105 mmol/L (98-107) Carbon Dioxide Level 23 mmol/L (21-32) Anion Gap 12 (6-14) Blood Urea Nitrogen 5 mg/dL (7-20) Creatinine 0.5 mg/dL (0.6-1.0) Estimated GFR (Cockcroft-Gault) 131.1 Glucose Level 90 mg/dL (70-99) Calcium Level 8.5 mg/dL (8.5-10.1) Medications Current Medications Sodium Chloride 1,000 ml @ 1,000 mls/hr Q1H IV Last administered on 03/13/19at 07:54; Start 03/13/19 at 07:54; Stop 03/13/19 at 08:53; Status DC Fentanyl Citrate (Fentanyl 2ml Vial) 50 mcg 1X ONCE IV Last administered on 03/13/19 08:05; Start 03/13/19 at 08:00; Stop 03/13/19 at 08:01; Status DC Ondansetron HCl (Zofran) 4 mg 1X ONCE IV Last administered on 03/13/19 08:04; Start 03/13/19 at 08:00; Stop 03/13/19 at 08:03; Status DC Prochlorperazine Edisylate (Compazine) 10 mg 1X ONCE IV Last administered on 03/13/19 08:42; Start 03/13/19 at 08:45; Stop 03/13/19 at 08:46; Status DC Metoclopramide HCl (Reglan Vial) 10 mg 1X ONCE IV Last administered on 03/13/19 09:28; Start 03/13/19 at 09:00; Stop 03/13/19 at 09:04; Status DC Morphine Sulfate (Morphine Sulfate) 4 mg 1X ONCE IV Last administered on 03/13/19 09:35; Start 03/13/19 at 09:00; Stop 03/13/19 at 09:04; Status DC Sodium Chloride 1,000 ml @ 150 mls/hr Q6H40M IV Last administered on 03/14/19 06:35; Start 03/13/19 at 10:06; Stop 03/14/19 at 10:05; Status DC Ondansetron HCl (Zofran) 4 mg 1X ONCE IV Last administered on 03/13/19at 13:50; Start 03/13/19 at 12:15; Stop 03/13/19 at 12:16; Status DC Ondansetron HCl (Zofran) 8 mg PRN Q6HRS PRN IV NAUSEA/VOMITING, 1ST CHOICE Last administered on 03/14/19 04:14; Start 03/13/19 at 12:15 Diazepam (Valium) 5 mg TID PO Last administered on 03/14/19 08:42; Start 03/13/19 at 15:00 Docusate Sodium (Colace) 100 mg BID PO Last administered on 03/14/19 08:42; Start 03/13/19 at 21:00 Acetaminophen/ Hydrocodone Bitart (Lortab 7.5/325) 1 tab [id number] PO Last administered on 03/14/19 08:42; Start 03/13/19 at 15:00 Morphine Sulfate (Ms Contin) 15 mg BID PO Last administered on 03/14/19 08:42; Start 03/13/19 at 21:00 Ondansetron HCl (Zofran Odt) 4 mg PRN Q6HRS PRN PO NAUSEA; Start 03/13/19 at 14:30 Prednisone (Prednisone) 5 mg DAILY PO Last administered on 03/14/19 08:41; Start 03/13/19 at 15:00 Pregabalin (Lyrica) 50 mg BID PO Last administered on 03/14/19 08:41; Start 03/13/19 at 21:00 Pantoprazole Sodium (Protonix) 40 mg DAILYAC PO ; Start 03/14/19 at 07:30; Stop 03/14/19 at 07:30; Status DC Metoclopramide HCl (Reglan Vial) 10 mg PRN Q6HRS PRN IV NAUSEA/VOMITING, 2ND CHOICE; Start 03/13/19 at 14:30 Acetaminophen (Tylenol) 650 mg PRN Q6HRS PRN PO Headaches, Temp > 101.5F; Start 03/13/19 at 14:30 Senna/Docusate Sodium (Senna Plus) 1 tab BID PO Last administered on 03/14/19 08:42; Start 03/13/19 at 21:00 Magnesium Hydroxide (Milk Of Magnesia) 2,400 mg PRN Q12HR PRN PO CONSTIPATION; Start 03/13/19 at 14:30 Heparin Sodium (Porcine) (Heparin Sodium) 5,000 unit Q8HRS SQ Last administered on 03/14/19 06:37; Start 03/13/19 at 15:00 Potassium Chloride/Sodium Chloride 1,000 ml @ 75 mls/hr 1X ONCE IV Last administered on 03/13/19at 16:06; Start 03/13/19 at 14:30; Stop 03/14/19 at 03:49; Status DC Famotidine (Pepcid Vial) 20 mg BID IVP Last administered on 03/14/19 08:43; Start 03/13/19 at 21:00 Morphine Sulfate (Morphine Sulfate) 6 mg PRN Q3HRS PRN IV PAIN Last administered on 03/14/19at 04:14; Start 03/13/19 at 15:45 Polyethylene Glycol (miraLAX PACKET) 17 gm DAILY PO Last administered on 03/14/19at 08:43; Start 03/14/19 at 09:00 Lubiprostone (Amitiza) 8 mcg BIDWMEALS PO Last administered on 03/14/19at 08:42; Start 03/13/19 at 17:00 Active Scripts Active Colace (Docusate Sodium) 100 Mg Capsule 100 Mg PO BID Ondansetron Odt (Ondansetron) 4 Mg Tab.rapdis 1 Tab PO PRN Q6HRS PRN Reported Nitrofurantoin [place]-Mcr 100 Mg (Nitrofurantoin Monohyd/M-Cryst) 100 Mg Capsule 1 Cap PO DAILY Morphine Sulfate Er (Morphine Sulfate) 15 Mg Tablet.er 1 Tab PO BID Lyrica (Pregabalin) 50 Mg Capsule 50 Mg PO BID Protonix (Pantoprazole Sodium) 20 Mg Tablet.dr 20 Mg PO DAILY Prednisone 1 Mg Tablet 5 Mg PO PRN DAILY PRN Valium (Diazepam) 5 Mg Tablet 5 Mg PO TID Hydrocodone-Acetamin 7.5-325 (Hydrocodone/Acetaminophen) 1 Each Tablet 1 Each PO BID92 Vitals/I & O Vital Sign - Last 24 Hours 03/13/19 03/13/19 03/13/19 03/13/19 11:18 15:00 16:07 19:00 Temp 98.1 98.4 98.1 98.1 98.4 98.1 Pulse 95 80 95 Resp 18 16 16 B/P (MAP) 132/85 (101) 158/86 (110) 161/94 (116) Pulse Ox 98 96 96 O2 Delivery Room Air Room Air Room Air Room Air 03/13/19 03/13/19 03/13/19 03/14/19 20:30 20:32 23:00 00:05 Temp 98.0 98.0 Pulse 60 Resp 16 B/P (MAP) 167/95 (119) Pulse Ox 96 97 97 O2 Delivery Room Air Room Air 03/14/19 03/14/19 03/14/19 03/14/19 03:00 04:14 04:44 07:00 Temp 98.0 97.4 98.0 97.4 Pulse 89 55 Resp 16 18 18 B/P (MAP) 108/67 (81) 106/63 (77) Pulse Ox 95 95 97 O2 Delivery Room Air Room Air Room Air Room Air 03/14/19 03/14/19 03/14/19 08:00 08:42 08:42 Resp 20 20 Pulse Ox 94 94 O2 Delivery Room Air Room Air Room Air Intake and Output 03/13/19 03/13/19 03/14/19 15:00 23:00 07:00 Intake Total 1000 ml 0 ml 200 ml Balance 1000 ml 0 ml 200 ml ANGELES MCKINNEY III DO Mar 14, 2019 11:19
--- NOTE | 2019-03-14 13:00 | PDOC ---
[facility] PROGRESS NOTE Reason for Follow-up N/V Subjective Tolerating PO today/wants to go home Physical Exam Lungs clear CV S1 S2 ABD soft mildly distended, +BS Review of Relevant I have reviewed the following items alon (where applicable) has been applied. Labs Laboratory Tests Test 03/13/19 07:56 03/13/19 08:55 03/14/19 04:10 White Blood Count 14.0 x10^3/uL (4.0-11.0) 8.3 x10^3/uL (4.0-11.0) Red Blood Count 4.43 x10^6/uL (3.50-5.40) 3.59 x10^6/uL (3.50-5.40) Hemoglobin 14.3 g/dL (12.0-15.5) 11.7 g/dL (12.0-15.5) Hematocrit 42.7 % (36.0-47.0) 34.6 % (36.0-47.0) Mean Corpuscular Volume 96 fL (79-100) 97 fL (79-100) Mean Corpuscular Hemoglobin 32 pg (25-35) 33 pg (25-35) Mean Corpuscular Hemoglobin Concent 33 g/dL (31-37) 34 g/dL (31-37) Red Cell Distribution Width 12.9 % (11.5-14.5) 12.7 % (11.5-14.5) Platelet Count 327 x10^3/uL (140-400) 252 x10^3/uL (140-400) Neutrophils (%) (Auto) 67 % (31-73) 47 % (31-73) Lymphocytes (%) (Auto) 25 % (24-48) 44 % (24-48) Monocytes (%) (Auto) 8 % (0-9) 8 % (0-9) Eosinophils (%) (Auto) 0 % (0-3) 1 % (0-3) Basophils (%) (Auto) 0 % (0-3) 0 % (0-3) Neutrophils # (Auto) 9.4 x10^3uL (1.8-7.7) 3.9 x10^3uL (1.8-7.7) Lymphocytes # (Auto) 3.4 x10^3/uL (1.0-4.8) 3.6 x10^3/uL (1.0-4.8) Monocytes # (Auto) 1.1 x10^3/uL (0.0-1.1) 0.7 x10^3/uL (0.0-1.1) Eosinophils # (Auto) 0.0 x10^3/uL (0.0-0.7) 0.1 x10^3/uL (0.0-0.7) Basophils # (Auto) 0.0 x10^3/uL (0.0-0.2) 0.0 x10^3/uL (0.0-0.2) Sodium Level 144 mmol/L (136-145) 140 mmol/L (136-145) Potassium Level 3.4 mmol/L (3.5-5.1) 3.8 mmol/L (3.5-5.1) Chloride Level 104 mmol/L (98-107) 105 mmol/L (98-107) Carbon Dioxide Level 26 mmol/L (21-32) 23 mmol/L (21-32) Anion Gap 14 (6-14) 12 (6-14) Blood Urea Nitrogen 8 mg/dL (7-20) 5 mg/dL (7-20) Creatinine 0.7 mg/dL (0.6-1.0) 0.5 mg/dL (0.6-1.0) Estimated GFR (Cockcroft-Gault) 88.9 131.1 BUN/Creatinine Ratio 11 (6-20) Glucose Level 111 mg/dL (70-99) 90 mg/dL (70-99) Calcium Level 9.7 mg/dL (8.5-10.1) 8.5 mg/dL (8.5-10.1) Total Bilirubin 0.4 mg/dL (0.2-1.0) Aspartate Amino Transf (AST/SGOT) 23 U/L (15-37) Alanine Aminotransferase (ALT/SGPT) 37 U/L (14-59) Alkaline Phosphatase 101 U/L (46-116) Creatine Kinase 136 U/L (26-192) Total Protein 7.5 g/dL (6.4-8.2) Albumin 3.8 g/dL (3.4-5.0) Albumin/Globulin Ratio 1.0 (1.0-1.7) Lipase 121 U/L (73-393) Urine Collection Type Unknown Urine Color Yellow Urine Clarity Clear Urine pH 8.0 Urine Specific [place] 1.015 Urine Protein Negative mg/dL (NEG-TRACE) Urine Glucose (UA) Negative mg/dL (NEG) Urine Ketones (Stick) Negative mg/dL (NEG) Urine Blood Negative (NEG) Urine Nitrite Negative (NEG) Urine Bilirubin Negative (NEG) Urine Urobilinogen Dipstick 0.2 mg/dL (0.2 mg/dL) Urine Leukocyte Esterase Negative (NEG) Urine RBC 1-2 /HPF (0-2) Urine WBC 1-4 /HPF (0-4) Urine Squamous Epithelial Cells Many /LPF Urine Bacteria Few /HPF (0-FEW) Urine Mucus Marked /LPF Laboratory Tests Test 03/14/19 04:10 White Blood Count 8.3 x10^3/uL (4.0-11.0) Red Blood Count 3.59 x10^6/uL (3.50-5.40) Hemoglobin 11.7 g/dL (12.0-15.5) Hematocrit 34.6 % (36.0-47.0) Mean Corpuscular Volume 97 fL (79-100) Mean Corpuscular Hemoglobin 33 pg (25-35) Mean Corpuscular Hemoglobin Concent 34 g/dL (31-37) Red Cell Distribution Width 12.7 % (11.5-14.5) Platelet Count 252 x10^3/uL (140-400) Neutrophils (%) (Auto) 47 % (31-73) Lymphocytes (%) (Auto) 44 % (24-48) Monocytes (%) (Auto) 8 % (0-9) Eosinophils (%) (Auto) 1 % (0-3) Basophils (%) (Auto) 0 % (0-3) Neutrophils # (Auto) 3.9 x10^3uL (1.8-7.7) Lymphocytes # (Auto) 3.6 x10^3/uL (1.0-4.8) Monocytes # (Auto) 0.7 x10^3/uL (0.0-1.1) Eosinophils # (Auto) 0.1 x10^3/uL (0.0-0.7) Basophils # (Auto) 0.0 x10^3/uL (0.0-0.2) Sodium Level 140 mmol/L (136-145) Potassium Level 3.8 mmol/L (3.5-5.1) Chloride Level 105 mmol/L (98-107) Carbon Dioxide Level 23 mmol/L (21-32) Anion Gap 12 (6-14) Blood Urea Nitrogen 5 mg/dL (7-20) Creatinine 0.5 mg/dL (0.6-1.0) Estimated GFR (Cockcroft-Gault) 131.1 Glucose Level 90 mg/dL (70-99) Calcium Level 8.5 mg/dL (8.5-10.1) Medications Current Medications Sodium Chloride 1,000 ml @ 1,000 mls/hr Q1H IV Last administered on 03/13/19at 07:54; Start 03/13/19 at 07:54; Stop 03/13/19 at 08:53; Status DC Fentanyl Citrate (Fentanyl 2ml Vial) 50 mcg 1X ONCE IV Last administered on 03/13/19at 08:05; Start 03/13/19 at 08:00; Stop 03/13/19 at 08:01; Status DC Ondansetron HCl (Zofran) 4 mg 1X ONCE IV Last administered on 03/13/19at 08:04; Start 03/13/19 at 08:00; Stop 03/13/19 at 08:03; Status DC Prochlorperazine Edisylate (Compazine) 10 mg 1X ONCE IV Last administered on 03/13/19at 08:42; Start 03/13/19 at 08:45; Stop 03/13/19 at 08:46; Status DC Metoclopramide HCl (Reglan Vial) 10 mg 1X ONCE IV Last administered on 03/13/19at 09:28; Start 03/13/19 at 09:00; Stop 03/13/19 at 09:04; Status DC Morphine Sulfate (Morphine Sulfate) 4 mg 1X ONCE IV Last administered on 03/13/19at 09:35; Start 03/13/19 at 09:00; Stop 03/13/19 at 09:04; Status DC Sodium Chloride 1,000 ml @ 150 mls/hr Q6H40M IV Last administered on 03/14/19at 06:35; Start 03/13/19 at 10:06; Stop 03/14/19 at 10:05; Status DC Ondansetron HCl (Zofran) 4 mg 1X ONCE IV Last administered on 03/13/19at 13:50; Start 03/13/19 at 12:15; Stop 03/13/19 at 12:16; Status DC Ondansetron HCl (Zofran) 8 mg PRN Q6HRS PRN IV NAUSEA/VOMITING, 1ST CHOICE Last administered on 03/14/19at 04:14; Start 03/13/19 at 12:15 Diazepam (Valium) 5 mg TID PO Last administered on 03/14/19 08:42; Start 03/13/19 at 15:00 Docusate Sodium (Colace) 100 mg BID PO Last administered on 03/14/19 08:42; Start 03/13/19 at 21:00 Acetaminophen/ Hydrocodone Bitart (Lortab 7.5/325) 1 tab [id number] PO Last administered on 03/14/19at 08:42; Start 03/13/19 at 15:00 Morphine Sulfate (Ms Contin) 15 mg BID PO Last administered on 03/14/19at 08:42; Start 03/13/19 at 21:00 Ondansetron HCl (Zofran Odt) 4 mg PRN Q6HRS PRN PO NAUSEA; Start 03/13/19 at 14:30 Prednisone (Prednisone) 5 mg DAILY PO Last administered on 03/14/19at 08:41; Start 03/13/19 at 15:00 Pregabalin (Lyrica) 50 mg BID PO Last administered on 03/14/19at 08:41; Start 03/13/19 at 21:00 Pantoprazole Sodium (Protonix) 40 mg DAILYAC PO ; Start 03/14/19 at 07:30; Stop 03/14/19 at 07:30; Status DC Metoclopramide HCl (Reglan Vial) 10 mg PRN Q6HRS PRN IV NAUSEA/VOMITING, 2ND CHOICE; Start 03/13/19 at 14:30 Acetaminophen (Tylenol) 650 mg PRN Q6HRS PRN PO Headaches, Temp > 101.5F; Start 03/13/19 at 14:30 Senna/Docusate Sodium (Senna Plus) 1 tab BID PO Last administered on 03/14/19at 08:42; Start 03/13/19 at 21:00 Magnesium Hydroxide (Milk Of Magnesia) 2,400 mg PRN Q12HR PRN PO CONSTIPATION; Start 03/13/19 at 14:30 Heparin Sodium (Porcine) (Heparin Sodium) 5,000 unit Q8HRS SQ Last administered on 03/14/19at 06:37; Start 03/13/19 at 15:00 Potassium Chloride/Sodium Chloride 1,000 ml @ 75 mls/hr 1X ONCE IV Last administered on 03/13/19at 16:06; Start 03/13/19 at 14:30; Stop 03/14/19 at 03:49; Status DC Famotidine (Pepcid Vial) 20 mg BID IVP Last administered on 03/14/19at 08:43; Start 03/13/19 at 21:00 Morphine Sulfate (Morphine Sulfate) 6 mg PRN Q3HRS PRN IV PAIN Last administered on 03/14/19at 12:54; Start 03/13/19 at 15:45 Polyethylene Glycol (miraLAX PACKET) 17 gm DAILY PO Last administered on 03/14/19at 08:43; Start 03/14/19 at 09:00 Lubiprostone (Amitiza) 8 mcg BIDWMEALS PO Last administered on 03/14/19at 08:42; Start 03/13/19 at 17:00 Active Scripts Active Colace (Docusate Sodium) 100 Mg Capsule 100 Mg PO BID Ondansetron Odt (Ondansetron) 4 Mg Tab.rapdis 1 Tab PO PRN Q6HRS PRN Reported Nitrofurantoin [place]-Mcr 100 Mg (Nitrofurantoin Monohyd/M-Cryst) 100 Mg Capsule 1 Cap PO DAILY Morphine Sulfate Er (Morphine Sulfate) 15 Mg Tablet.er 1 Tab PO BID Lyrica (Pregabalin) 50 Mg Capsule 50 Mg PO BID Protonix (Pantoprazole Sodium) 20 Mg Tablet.dr 20 Mg PO DAILY Prednisone 1 Mg Tablet 5 Mg PO PRN DAILY PRN Valium (Diazepam) 5 Mg Tablet 5 Mg PO TID Hydrocodone-Acetamin 7.5-325 (Hydrocodone/Acetaminophen) 1 Each Tablet 1 Each PO BID92 Vitals/I & O Vital Sign - Last 24 Hours 03/13/19 03/13/19 03/13/19 03/13/19 15:00 16:07 19:00 20:30 Temp 98.4 98.1 98.4 98.1 Pulse 80 95 Resp 16 16 B/P (MAP) 158/86 (110) 161/94 (116) Pulse Ox 96 96 O2 Delivery Room Air Room Air Room Air Room Air 03/13/19 03/13/19 03/14/19 03/14/19 20:32 23:00 00:05 03:00 Temp 98.0 98.0 98.0 98.0 Pulse 60 89 Resp 16 16 B/P (MAP) 167/95 (119) 108/67 (81) Pulse Ox 96 97 97 95 O2 Delivery Room Air Room Air 03/14/19 03/14/19 03/14/19 03/14/19 04:14 04:44 07:00 08:00 Temp 97.4 97.4 Pulse 55 Resp 18 18 B/P (MAP) 106/63 (77) Pulse Ox 95 97 O2 Delivery Room Air Room Air Room Air Room Air 03/14/19 03/14/19 03/14/19 03/14/19 08:42 08:42 09:45 11:00 Temp 98.3 98.3 Pulse 62 Resp 20 19 18 B/P (MAP) 97/58 (71) Pulse Ox 94 94 94 95 O2 Delivery Room Air Room Air Room Air Room Air Intake and Output 03/13/19 03/13/19 03/14/19 15:00 23:00 07:00 Intake Total 1000 ml 0 ml 200 ml Balance 1000 ml 0 ml 200 ml Problem List Problems Medical Problems: (1) Acute post-operative pain Status: Acute (2) Hypokalemia Status: Acute Assessment Cyclic vomiting- with increased analgesic use with reecnt back surgery, advance diet and activity as tolerated. stable for release home today KAITLIN WARE MD Mar 14, 2019 13:00
--- NOTE | 2019-03-14 13:25 | NUR ---
DISCHARGE INSTRUCTIONS GIVEN, QUESTIONS AND CONCERNS ANSWERED, PATIENT VERBALIZED UNDERSTANDING OF DISCHARGE INFORMATION INCLUDING TAKING ALL MEDICATIONS INSTRUCTED AND FOLLOWING UP WITH HER PRIMARY PROVIDER IN 1 WEEK. SALINE LOCK REMOVED FROM RIGHT AC AREA PRIOR TO DISCHARGE.
--- NOTE | 2019-03-14 13:26 | NUR ---
PATIENT TOLERATED A FULL LIQUID LUNCH WITHOUT C/O NAUSEA/VOMITING, CONSUMED 50%, INFORMED THIS FAGOT HEATER THAT SHE FELT PRETTY GOOD AND FEELS LIKE SHE COULD GO HOME, PRESCRIPTION IN THE CHART FOR COMPAZINE AND DISCHARGE ORDERS PLACED BY DR. MCKINNEY EARLIER IN THE AM.
[2019-03-14 15:52] LABS: BARBITURATES NEG (NEG); BENZODIAZEPINES POS (NEG); CANNABINOIDS POS (NEG); COCAINE NEG (NEG); METHADONE NEG (NEG); OPIATES POS (NEG); PHENCYCLIDINE NEG (NEG)
[2019-03-14 15:53] LABS: AMPHETAMINE/METHAMPHETAMINE NEG (NEG)
--- NOTE | 2019-03-14 21:41 | DS ---
DATE OF DISCHARGE: 03/14/2019 ADMISSION DIAGNOSES: Nausea, vomiting with history of cyclic vomiting syndrome and recent lumbar surgery. DISCHARGE DIAGNOSIS: Resolving nausea and vomiting. CONSULTS: Her neurosurgeon and GI. PROCEDURES: None. HOSPITAL COURSE: The patient is a pleasant middle-aged female who presented with nausea, vomiting. She had a recent back surgery. We thought it might be from the medications but actually she does have a history of cyclic vomiting as well. Basically, we gave her fluids and Compazine overnight and some Zofran as well. This morning when I saw her and examined her, she was requesting discharge. She wants to try to advance her diet. I will go ahead and advance her diet and discharge this afternoon if okay with the subspecialist. I did talk to her nurse about this as well. DISPOSITION: Home. ACTIVITY: As tolerated. DIET: Low sodium. MEDICATIONS: Please see the MRAD. Basically, we just continued her home medications and give her a prescription for Compazine. TOTAL TIME: 32 minutes. ANGELES MCKINNEY DO DR: LYUDMILA/leatha JOB#: [id number] / [id number]
== END 2019-03-14 14:10 | disposition home or self-care (01) | DRG 103 ==
LOC: ER 07:37 → 5 NORTH 09:03
PROVIDERS: ADMIT Internal Medicine; ATTEND Internal Medicine
DX: G43.A0 Cyclical vomiting, in migraine, not intractable (principal); K21.9 Gastro-esophageal reflux disease without esophagitis; F12.90 Cannabis use, unspecified, uncomplicated; E87.6 Hypokalemia; G89.18 Other acute postprocedural pain; M19.90 Unspecified osteoarthritis, unspecified site; F17.210 Nicotine dependence, cigarettes, uncomplicated; G89.29 Other chronic pain; F32.9 Major depressive disorder, single episode, unspecified; F41.9 Anxiety disorder, unspecified; Z90.49 Acquired absence of other specified parts of digestive tract; Z90.710 Acquired absence of both cervix and uterus; Z79.891 Long term (current) use of opiate analgesic; Z98.51 Tubal ligation status; Z88.6 Allergy status to analgesic agent; Z88.8 Allergy status to other drugs, medicaments and biological substances; Z71.6 Tobacco abuse counseling; Z82.49 Family history of ischemic heart disease and other diseases of the circulatory system; Z83.3 Family history of diabetes mellitus
CPT/HCPCS: 36415; 74018; 80048; 80053; 80307; 81001; 82550; 83690; 85025; 96361; 96374; 96375; J0780; J1644; J2270; J2405; J2765; J3010; J3490; J7030; J7512; 99285-25